=== PATIENT | female | born 2000 | race Caucasian/White ===

== ENCOUNTER → 2020-10-12 09:31 | Outpatient (CLI) | payer OTHER, SELFPAY ==
--- NOTE | ~2020-10-12 | US_ITS ---
EXAMINATION: US transvaginal DATE: 10/12/2020 09:55 INDICATION: Pelvic and perineal pain. TECHNIQUE: Multiple transvaginal sonographic images of the pelvis were obtained. COMPARISON: None. FINDINGS: The uterus measures 5.9 x 2.5 x 3.6 cm. There is no free fluid in the pelvis. The endometrial complex measures 4 mm in thickness. There is an intrauterine device in expected position. The right ovary me asures 3.7 x 2.3 x 3.0 cm. The left ovary measures 4.6 x 2.8 x 2.7 cm. There is normal vascular flow in the ovaries. IMPRESSION: 1. Intrauterine device in expected position. Reviewed, dictated and finalized at location A. AST WORKER
== END ==
PROVIDERS: Visit Provider Obstetrics & Gynecology
DX: R10.2 Pelvic and perineal pain (principal); Z97.5 Presence of (intrauterine) contraceptive device
CPT/HCPCS: 76830

== ENCOUNTER 2023-06-28 09:11 | Outpatient (CLI) | payer OTHER, SELFPAY ==
--- NOTE | 2023-07-05 19:48 | WPDHOMESLEEP ---
Sleep Study - Home Unattended Date of Study: 06/28/23 Ordering Provider: Sosa Wells, MAINTENANCE APPRENTICE Interpreting Provider: Soha Rocha, DO Home Sleep Study Type: Watch PAT Height: 1.73 m Weight: 90.718 kg Body Mass Index: 30.4 Neck Circumference (inches): 13.75 [place]: 15 Reason for Sleep Study Unrefreshing sleep and daytime hypersomnia Sleep History The patient is a 22-year-old female with anxiety, depression, asthma and seasonal allergies that had a sleep study ordered by her primary care for evaluation hypersomnia. The patient denies awakening from sleep short of breath. She frequently awakens at night with heartburn, belching or cough. She constantly snores loudly enough that others complain. She constantly has trouble sleeping when she has a cold. She rarely wakes up gasping for air throughout the night. She occasionally has breathing problems at night observed by herself or others. She constantly sweats excessively at night. She frequently has heart palpitations or irregular heartbeats during the night. She constantly falls asleep during the day but never while driving. He denies cataplexy. She occasionally has trouble at school or work due to sleepiness. She frequently feels unable to move while waking up or falling asleep. She frequently experiences vivid dreamlike scenes upon awakening or falling asleep. He occasionally feels afraid of going to sleep. She rarely has nightmares. She frequently remembers her dreams. She constantly has thoughts racing through her mind. She frequently feels sad or depressed. She constantly has anxiety. She occasionally has muscular tension. She denies noticing parts of her body jerk. She occasionally kicks during the night. She rarely has crawling and aching feelings in her legs and denies having leg pain during the night. She rarely grinds her teeth during sleep it never awakens with morning jaw pain. She denies being bothered by pain during the day and denies being awakened by pain during the night. She frequently wakes up feeling stiff in the morning. She frequently wakes up with sore achy muscles. She frequently wakes up with pain in the neck, spine or other joints. She goes to bed between 10-11 p.m. on both weekdays and weekends. It takes her 1-2 hours to fall asleep. She wakes up twice throughout the night to urinate or to check the time. It takes her 15-30 minutes to fall back asleep. She wakes up at 7:00 a.m. on both weekdays and weekends. She typically gets 5-6 hours of sleep per night. She will stay in bed for 1-2 hours after waking up in the morning. She does not consume any caffeinated beverages within 2 hours of bedtime. She does not engage in physical exercise before bedtime. She will watch television before falling asleep. She will take naps in the afternoon of the evening but they are not refreshing. She consumes 1-2 caffeinated beverages per day. She denies tobacco, alcohol and recreational drug use. [facility] Past Medical History Medical History Anxiety Depression Ovarian cyst Surgical History Surgical History H/O gynecological procedure 04/2020 Kyleena insertion History of orthopedic surgery History of tonsillectomy Family History Family History Mother Endometriosis Father Diabetes mellitus Social History Social History Smoking status: Never smoker Alcohol intake: current Alcohol use details: rarely Substance use: never Substance use type: does not use Lack of Transportation: No Lack of Food: Never True Current Housing: I Have Housing Concerned About Future Housing: No Difficulty Paying Gas/Electric Bills: No Difficulty Paying for Meds: No Currently Unemployed: No Education: [employer]
[2023-07-05 19:58] VITALS: BMI 30.4
== END 2023-06-29 12:47 | disposition home or self-care (01) ==
LOC: ANHCSM 09:14
PROVIDERS: PCP Nurse Practitioner Family; Visit Provider Nurse Practitioner Family
DX: G47.30 Sleep apnea, unspecified (principal); G47.9 Sleep disorder, unspecified
CPT/HCPCS: 95800

== ENCOUNTER 2023-08-18 00:55 | Day surgery (SDC) | payer OTHER, SELFPAY ==
[2023-08-11 13:56] VITALS: BMI 32.0
--- NOTE | 2023-08-17 16:54 | PM.HPGS ---
History of Present Illness History of Present Illness Consent: Risks, benefits, and alternatives have been discussed and questions answered. Patient agrees to proceed with procedure. Chief complaint: Other Dysphagia Narrative: Jill Villegas is a 23 year old female referred for EGD because of dysphagia. For the past 4 years she has had intermittent episodes of food getting caught when she. Is usually solid food. Feels as though it is in her throat although it can be therefore of the 30 minutes. Sometimes she can vomit it back up. It is not something that she can spit out. She denies chronic heartburn. She has not lost weight. Review of Systems Review of Systems: All systems reviewed & are unremarkable except as noted in HPI and below PMFSH Past Medical History Medical History Anxiety Depression Ovarian cyst Surgical History Surgical History H/O gynecological procedure 04/2020 Kyleena insertion History of orthopedic surgery History of tonsillectomy Family History Family History Mother Endometriosis Father Diabetes mellitus Social History Social History Smoking status: Never smoker Alcohol intake: never Alcohol use details: rarely Substance use: never Substance use type: does not use Lack of Transportation: No Lack of Food: Never True Current Housing: I Have Housing Concerned About Future Housing: No Difficulty Paying Gas/Electric Bills: No Difficulty Paying for Meds: No Currently Unemployed: No Education: High School Diploma/GED Difficulty w/ Childcare or Family Care: No Living arrangements: alone Occupation/Education: student Additional occupation/education comments: [employer] Gender identity (if verbalized by the patient): Female Sexual Orientation (if Verbalized by the Patient): Straight or Heterosexual Spiritual care concerns: No Meds Home Medications and Allergies Home Medications Medication Instructions Recorded Confirmed Type levonorgestrel 17.5 mcg/24 hrs 1 device intrauterine ONCE 04/15/23 08/11/23 History (5yrs) 19.5mg intrauterine device (Kyleena) norelgestromin 150 mcg-e.estradiol 1 patch transdermal Q7D #12 ea 04/15/23 08/11/23 Rx 35 mcg/24 hr weekly transderm patch (Xulane) sertraline 100 mg tablet 100 mg PO DAILY 04/15/23 08/11/23 History albuterol sulfate 90 mcg/actuation 2 inh inhalation Q6H PRN Dyspnea 08/11/23 08/11/23 History aerosol inhaler bupropion HCl 300 mg 24 hr tablet, 300 mg PO DAILY 08/11/23 08/18/23 History extended release fluticasone fur. 100 mcg-umeclid 1 inh inhalation DAILY 08/11/23 08/18/23 History 62.5 mcg-vilant 25 mcg inhalat.powder (Trelegy Ellipta) Allergies Allergy/AdvReac Type Severity Reaction Status Date / Time cefdinir [From [employer]] Allergy Severe Hives Verified 08/18/23 12:22 Penicillins Allergy Severe Hives Verified 08/18/23 12:22 Exam Const: General: alert Orientation/consciousness: patient oriented x3 Resp: Auscultation: clear to auscultation bilaterally Cardio: Rhythm: regular rhythm GI: GI Palp: Yes Soft to palpation and No Tenderness to palpation present (GI) Neuro: General: patient oriented x3 Assessment and Plan Assessment and plan (1) Dysphagia: Code(s): R13.10 - Dysphagia, unspecified Status: Acute Assessment and Plan: EGD with possible biopsy or dilatation or cautery.
[2023-08-18 12:28] VITALS: BP 134/76; PULSE 100; RESP 20; TEMP 36; O2SAT 97
[2023-08-18] MEDS: LACTATED RINGERS 1,000 ML 150 ML IV CONT (12:43)
--- NOTE | 2023-08-18 12:47 | WPDANESEPPF ---
Anes - Initial Pre Proc Eval Procedure: Operation Date: 08/18/23 13:45 Proposed Procedures p Esophagogastroduodenoscopy - Kwame Alston MD Date/Time: 08/18/23 12:47 Surgeon: Kwame Alston MD Pre Op Diagnosis: Other Dysphagia Patient Data Age: 23 Gender: F Height: 1.73 m Weight: 91.9 kg Last Vital Signs Temp 96.8 F L 08/18/23 12:28 Pulse 100 08/18/23 12:28 Resp 20 08/18/23 12:28 BP 134/76 08/18/23 12:28 Pulse Ox 97 08/18/23 12:28 O2 Del Method Room Air 08/18/23 12:28 Allergies Allergy/AdvReac Type Severity Reaction Status Date / Time cefdinir [From [employer]] Allergy Severe Hives Verified 08/18/23 12:22 Penicillins Allergy Severe Hives Verified 08/18/23 12:22 Home Medications Medication Instructions Recorded Confirmed Type levonorgestrel 17.5 mcg/24 hrs 1 device intrauterine ONCE 04/15/23 08/11/23 History (5yrs) 19.5mg intrauterine device (Kyleena) norelgestromin 150 mcg-e.estradiol 1 patch transdermal Q7D #12 ea 04/15/23 08/11/23 Rx 35 mcg/24 hr weekly transderm patch (Xulane) sertraline 100 mg tablet 100 mg PO DAILY 04/15/23 08/11/23 History albuterol sulfate 90 mcg/actuation 2 inh inhalation Q6H PRN Dyspnea 08/11/23 08/11/23 History aerosol inhaler bupropion HCl 300 mg 24 hr tablet, 300 mg PO DAILY 08/11/23 08/18/23 History extended release fluticasone fur. 100 mcg-umeclid 1 inh inhalation DAILY 08/11/23 08/18/23 History 62.5 mcg-vilant 25 mcg inhalat.powder (Trelegy Ellipta) Patient hx anesthesia problems: none Family hx anesthesia problems: none Results Review: All pre-operative results and documents have been reviewed as part of the pre-operative evaluation. [facility] Past Medical History Medical History Anxiety Depression Ovarian cyst Surgical History Surgical History H/O gynecological procedure 04/2020 Kyleena insertion History of orthopedic surgery History of tonsillectomy Family History Family History Mother Endometriosis Father Diabetes mellitus Social History Social History Smoking status: Never smoker Alcohol intake: never Alcohol use details: rarely Substance use: never Substance use type: does not use Lack of Transportation: No Lack of Food: Never True Current Housing: I Have Housing Concerned About Future Housing: No Difficulty Paying Gas/Electric Bills: No Difficulty Paying for Meds: No Currently Unemployed: No Education: High School Diploma/GED Difficulty w/ Childcare or Family Care: No Living arrangements: alone Occupation/Education: student Additional occupation/education comments: [employer] Gender identity (if verbalized by the patient): Female Sexual Orientation (if Verbalized by the Patient): Straight or Heterosexual Spiritual care concerns: No Anes - Eval Final PreProcedure Day of Procedure 08/18/23 12:47 Patient weight: obese Heart: regular rate and rhythm Lungs: clear to auscultation Airway: Mallampati scale class II Neurological: alert and oriented Last oral intake: >/= 8 hours ASA classification: II Emergent: no Anesthetic plan: proceed Anesthesia type and monitoring: general GIVS and standard monitoring Results Review: All pre-operative results and documents have been reviewed as part of the pre-operative evaluation. Informed Consent: The patient's anesthetic plan and its attendant risks and benefits were discussed with the patient/family/POA. Questions were solicited and answers provided to the satisfaction of the patient/family/POA.
[2023-08-18 13:40] VITALS: BP 115/69; PULSE 90; RESP 17; O2SAT 99
[2023-08-18 13:50] VITALS: BP 114/75; PULSE 75; RESP 20; O2SAT 99
[2023-08-18 14:00] VITALS: BP 119/78; PULSE 87; RESP 22; O2SAT 100
== END 2023-08-18 14:07 | disposition home or self-care (01) ==
PROVIDERS: PCP Nurse Practitioner Family; Visit Provider Internal Medicine Gastroenterology
PROC: 0DJ08ZZ Inspection of Upper Intestinal Tract, Via Natural or Artificial Opening Endoscopic (ICD-10-PCS; CPT 43235; principal; 2023-08-18 13:45)
DX: K22.2 Esophageal obstruction (principal); K21.00 Gastro-esophageal reflux disease with esophagitis, without bleeding; F41.9 Anxiety disorder, unspecified; F32.A Depression, unspecified; Z79.51 Long term (current) use of inhaled steroids; E66.9 Obesity, unspecified; Z68.30 Body mass index [BMI] 30.0-30.9, adult
CPT/HCPCS: 43249; 43239; 87081; 88305; C1726; J2704; J7120

== ENCOUNTER 2024-12-12 10:01 | Outpatient (CLI) | payer OTHER, SELFPAY ==
--- NOTE | ~2024-12-12 | XR_ITS ---
Right Knee Technique: AP, lateral, and sunrise views were obtained. Clinical History: Pain Findings: No fracture or dislocation is seen. Osseous alignment is anatomic. Joint spaces are preserv ed without degenerative or erosive change. Soft tissues are unremarkable. No joint effusion is seen. Impression: Unremarkable right knee radiographs. Reviewed, dictated and finalized at location . 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
== END 2024-12-12 10:02 | disposition home or self-care (01) ==
PROVIDERS: PCP Nurse Practitioner Family; Visit Provider Nurse Practitioner Family
DX: M25.561 Pain in right knee (principal)
CPT/HCPCS: 73562

== ENCOUNTER 2025-03-29 16:02 | Outpatient (CLI) | payer OTHER, SELFPAY ==
--- NOTE | ~2025-03-29 | CT_ITS ---
EXAMINATION: CT sinus wo con DATE: 03/29/2025 16:17 INDICATION: Allergic rhinitis TECHNIQUE: Computed tomography (CT) of the paranasal sinuses was performed without intravenous contra st. The dose-length product was 287.09 mGy-cm. Automated exposure control and iterative reconstructio n technique were employed. COMPARISON: None FINDINGS: There is scant mucosal thickening maxillary sinuses. Small mucous retention cyst left maxil mirna sinus. Remainder of the paranasal sinuses are unremarkable. No air-fluid levels. No mucoperioste al reaction. Partial opacification of the left ostiomeatal unit. Mastoids are pneumatized. Leftward n maite septal deviation. IMPRESSION: 1. Minimal sinus disease. Reviewed, dictated and finalized at location A. IMPRESSION: 1. Minimal sinus disease.
== END 2025-03-29 16:03 | disposition home or self-care (01) ==
LOC: MICIMG 16:04
PROVIDERS: PCP Nurse Practitioner; Visit Provider Otolaryngology
DX: J30.2 Other seasonal allergic rhinitis (principal); J34.3 Hypertrophy of nasal turbinates; J32.2 Chronic ethmoidal sinusitis
CPT/HCPCS: 70486

== ENCOUNTER 2025-04-16 01:13 | Day surgery (SDC) | payer OTHER, SELFPAY ==
[2025-04-10 14:41] VITALS: BMI 36.5
--- NOTE | 2025-04-10 14:49 | PC.NURSE ---
Report to the Outpatient Waiting Room, entrance under the green pavilion located off [facility], at time _1100_ on date _[id number]_. Planned Procedure Time: _1pm_.? Time changes happen often and if your time is changed the preop area will call you the afternoon before. - You and your visitor will be asked to self-screen and do not enter if you have any COVID symptoms. Please call surgeon if you need to reschedule. - A mask is optional within the hospital at this time. Patients may have clear liquids (water, carbonated beverages, clear teas, apple juice) until 3 hours prior to surgery with a maximum of 20 ounces. - No food from midnight until time of surgery and no smoking, or chewing tobacco (or any form of nicotine). No chewing gum, candy or mints. Take only the following medications with a SIP of water on the morning of surgery: __Fluoxetine and Trelegy. If needed may use albuterol.___ DO NOT STOP ANY OF YOUR OTHER PRESCRIPTION MEDICATIONS PRIOR TO SURGERY EXCEPT THE FOLLOWING Hold all vitamins and supplements for 3 days per anesthesiologist. Medications to discontinue per physician Date to take last mhjc___[id number]____ Please no make-up, nail omani, hairspray, perfume, deodorant, or body powder the day of surgery.? No jewelry (including any body piercings) or valuables the day of surgery, leave them at home.? Please take a shower or bath the night before, or the morning of, surgery with an antibacterial soap.? Wear comfortable, loose fitting clothing. - Jewelry must be removed prior to entering the operating room.? Rings and piercings that are not removed may be cut off. - The hospital will not accept responsibility for valuables.? - Please leave all valuables, including medications, at home the day of surgery. If you are going home after surgery, a licensed owner operator tanker truck driver must drive you home.? - NO public transportation without another adult if you receive anesthesia. - We recommend that an adult stay with you for 24 hours following discharge. - We also recommend that you do not drive, make important decision, drink alcoholic beverages, or take any drugs that were not prescribed by your health care provider for at least 24 hours after your discharge time. Follow any additional instructions given to you from your surgeon. Telephone instructions given to __Jill___and asked if any additional questions and then verbalized understanding. Patient advised to call surgeon office or pre surgery nurse liaison [phone] if any additional questions.
[2025-04-16] VITALS (12 sets, daily range): BP systolic 110–144; BP diastolic 63–92; PULSE 76–101; RESP 10–20; TEMP 36.2–36.3; O2SAT 94–97
--- OUTSIDE RECORDS SUMMARY | 2025-04-16 01:16 | XMS_ITS | Data Portability ---
Author Organization [facility] [employer], Main Office Address [address] [place] [address] Assessment Encounter Date Assessment Date Assessment LastModified by Organization Details LastModified Time 05/27/2023 05/27/2023 VIVIAN Wiggins Call office if worse, ER if life threatening illness RTC 1 month She voice understanding of plan and agrees [email or web address] Not available 05/27/2023 19:40:47 07/30/2023 07/30/2023 VIVIAN Wiggins Call office if worse, ER if life threatening illness RTC 1 month She voice understanding of plan and agrees [email or web address] Not available 07/30/2023 14:06:30 Plan of Treatment Reminders Order Date Submit Date Provider Last Modified By Organization Details Last Modified Time Details Appointments None recorded. Lab vitamin D, 25-hydroxy , total, serum 2024 025 VADIM [facility], [address] [place] [address], [address], 5 10:07:29 lipid panel, serum 2024 025 VADIM [facility], [address] [place] [address], [address], 5 10:07:29 HbA1c (hemoglobi n A1c), blood 2024 025 VADIM [facility], [address] [place] [address], [address], 5 10:07:29 Hepatitis C IgG Ab, qual, serum 2023 024 [email or web address] [facility], [address] [facility] [address], [facility], [place], [address], 4 07:39:18 CT + NG RNA, urine 2023 024 [email or web address] [facility], [address] [facility], [facility], [place], [address], 4 07:39:19 hepatitis C virus Ab, serum 2023 024 [email or web address] [facility], [address] [facility], [facility], [place], [address], 4 07:39:19 vitamin B12 + folate, serum or blood 2023 024 [email or web address] [facility], [address] [facility], [facility], [place], [address], 4 07:39:19 vitamin D, 25-hydroxy , total, serum 2023 024 [email or web address] [facility], [address] [facility], [facility], [place], [address], 4 07:39:19 lipid panel, serum 2023 024 [email or web address] [facility], [address] [facility], [facility], [place], [address], 4 07:39:18 CBC w/ auto diff 2023 024 VADIM [facility], [address] [facility], [facility], [place], [address], 4 08:09:06 TSH + free T4, serum 2023 024 [email or web address] [facility], [address] [facility], [facility], [place], [address], 4 07:39:18 CMP, serum or plasma 2023 024 [email or web address] [facility], [address], [place], [address], 4 07:39:19 vitamin B12 + folate, serum or blood 2022 023 [facility], [address], [place], [address], 3 10:08:30 PAPA (antinucle ar antibodies ) screen, ifa, serum 2022 023 [facility], [address] [facility] [address], [facility], [place], [address], 3 10:08:30 TSH + free T4, serum 2022 023 VADIM [facility], [address] [facility] [address], [facility], [place], [address], 3 10:17:38 HbA1c (hemoglobi n A1c), blood 2022 023 [facility], [address] [facility] [address], [facility], [place], [address], 3 10:08:30 thyroid peroxidase (tpo) Ab, serum 2022 023 [facility], [facility], [facility], [place], [address], 3 10:08:29 lipid panel, serum 2022 023 [facility], [address] [facility] [address], [facility], [place], [address], 3 10:08:30 CMP, serum or plasma 2022 023 [facility], [address] [facility] [address], [address], [place], [address], 3 10:08:29 CBC w/ auto diff 2022 023 [facility], [address] [facility], [facility], [place], [address], 3 10:08:29 vitamin D, 25-hydroxy , total, serum 2022 023 [facility], [address] [facility], [facility], [place], [address], 3 10:08:30 Referral orthopedic surgeon referral - Please call patient to schedule an appointmen t. Thank you. 2024 025 [email or web address] [facility], [address] [facility], [place], [address], 5 09:37:50 cardiologi referral - hx SVT, having episodes at home up to 200bpm on apple watch; approved [id number] 09/15/23-2022 023 Michelle Hernandez MD, [address] [facility] [address], [place], [address], 4 12:10:05 indian trader & immunologi referral - [place] [facility] if possible please, thank you! 2022 023 VADIM Malagon MD, [address] [facility], [place], [address], 3 14:57:28 psychiatri referral - eval for ADHD 2022 023 Pebbles [place] PHD, [address], [place], [address], 4 12:10:34 Procedures upper endoscopy procedure (EGD) (PROC) 2022 023 VADIM Alston MD, [address], [address], [place], [address], 3 16:54:29 Surgeries None recorded. Imaging XR, knee, 3 view 2024 025 [facility], [address], [place], [address], 5 13:04:23 home sleep study - Approved [id number] 05/31/2023- 08/29/2023 CPT 57546 2022 023 [facility] ([facility] [address] [facility], [place], [address], 3 21:01:59 electrocar diogram 2022 023 [email or web address] [facility] [address], [address] [facility], [address], [place], [address], 3 13:22:55 Medication Orders diclofenac sodium 75 mg tablet,del ayed release 2024 025 [facility], [address] [place], [id number], 5 09:52:05 sertraline 50 mg tablet 2023 024 [facility], [address] [place], [id number], 4 09:16:34 bupropion HCl XL 300 mg 24 hr tablet, extended release 2023 024 [email or web address] [facility] #57687, [address] [place], [place], [id number], 5 09:37:09 sertraline 100 mg tablet 2023 024 [facility] #01466, [address] , [place], [place], [id number], 4 16:56:49 bupropion HCl XL 300 mg 24 hr tablet, extended release 2022 023 [email or web address] [facility]01, [address], [place], [place], [id number], 5 09:37:09 bupropion HCl XL 150 mg 24 hr tablet, extended release 2022 023 [email or web address] [facility]15287, [address], [place], [place], [id number], 3 14:17:35 Symbicort 160 mcg-4.5 mcg/actuat ion HFA aerosol inhaler 2022 023 [facility]80, [address], [place], [place], [id number], 3 14:02:52 Patient TargetsNo targets recorded. Patient Instructions Encounter Date Encounter Id Patient Instructions Last Modified By Organization Details Last Modified Time 02/09/2024 [id number] Follow up in 4 months and as needed. Medications sent to pharmacy Continue follow up with cardiology, indian trader, DATA CONTROL ASSISTANT Not available 02/09/2024 09:00:01 06/07/2024 [id number] Follow up in 6 months Prescription sent to pharmacy Obtain labs Not available 06/07/2024 09:16:15 12/12/2024 [id number] Follow up in 3 months Prescription sent to pharmacy Obtain labs Tests: Referral: [facility]. 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 Referring Physician: Sosa Wells, Internal Medicine, Encounter Date: 05/27/2023 Saturator Operator Referral for Ta chycardia hx SVT, having episodes at home up to 200bpm on apple watch; approved [id number] 09/15/23-03/13/24 Referring Physician: Sosa Wells, Internal Medicine, Encounter Date: 05/27/2023 Psychiatrist Referral for Un able to concentrate eval for ADHD Referring Physician: Sosa Wells, Internal Medicine, Encounter Date: 05/27/2023 Orthopedic Surgeon Referral for Pain of right knee joint Please call patient to schedule an appointment. Thank you. Referring Physician: Marissa Payton, Internal Medicine, Encounter Date: 12/12/2024 Results Created Date Observation Date Name Description Value Unit Range Abnormal Flag Note LastModifiedBy Organization Detail LastModifiedTime 05/27/20 elect rocar diogr am No observ ation record ed. [email or web address] [facility] [address], [place], [address], 05/27/2023 13:22:51 07/05/20 23 06/28/2023 home sleep study No observ ation record ed. [email or web address], [place], [address], 07/07/2023 10:20:42 12/12/19 25 12/12/2024 XR, knee, 3 view No observ ation record ed. [email or web address] [facility] [address], [place], [address], 12/12/2024 13:36:43 Result Notes None recorded. Problems Name Problem SNOMED Code Status Onset Date Resolution Date Notes Provider Name and Address Organization Details Recorded Time Tachycardia 2996250 Active 2022 Marissa Payton APRN [address], [address], [place], [address], [employer] 4 08:43:29 Fatigue 61289757 Active 2022 Marissa Payton APRN [address], [address], [place], [address], [employer] 4 08:43:16 Asthma 523849672 Active 2022 Marissa Payton APRN [address], [address], [place], [address], [employer] [place] [facility] [employer] [facility] 4 08:43:11 Mixed anxiety and depressive disorder 113785102 Active 2022 Marissa Payton APRN [address], [address], [place], [address], [employer] [facility] 4 08:43:22 Sleep apnea 34940503 Active 2022 Marissa Payton APRN [address], [address], [place], [address], [employer] [place] [facility] [employer] [facility] 4 08:43:24 Vitamin D deficiency 66808455 Active 2022 Marissa Payton APRN [address], [address], [place], [address], [employer] [place] [facility] [employer] [facility] [employer] 4 08:43:33 Unable to concentrate 40652774 Active 2022 GEORGES [facility] [address], [place], [address], [employer] [facility] [employer] [facility] [employer] 3 13:20:18 Hyperlipide que 15183015 Active 2022 Marissa Payton APRN [address], [address], [place], [address], [employer] [facility] [employer] [facility] [employer] 4 08:43:19 Intermitten t dysphagia 17445362 Active 2022 GEORGES Gramajo [address], [place], [address], [employer] [place] [facility] [employer] [facility] [employer] 3 14:17:49 Polycystic ovary syndrome of bilateral ovaries 528098571 Active 2023 Marissa Payton APRN [address], [address], [place], [address], [employer] [facility] [employer] [facility] 4 08:45:42 Postural orthostatic tachycardia syndrome 504894834 Active 2023 Marissa Payton APRN [address], [place], [address], [employer] 4 08:47:41 Supraventri cular tachycardia 6968144 Active 2023 Marissa Payton APRN [address], [address], [place], [address], [employer] 4 08:54:01 Pain of right knee joint 2005766629202 00 Active 2024 Marissa Payton APRN [address], [place], [address], [employer] 5 09:50:45 Hypertrigly ceridemia 465421255 Active 2024 Marissa Payton APRN [address], [address], [place], [address], [employer] 5 11:11:47 Problem Notes None recorded. 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 Procedure Notes None recorded. Medical Equipment None Reported. Allergies Allergen ID Allergen Name Allergen Category Reaction Reaction Severity Criticality Documentation Date Start Date Code Code System Note Provider Name and Address Organization Details Recorded Time 88758 Product containin g penicilli n (product) medicatio n hives Not available Not available 01/13/2023 70243 8001 SNOMED Not Available [facility] 3 22:23:30 Medications Name Sig Start Date Stop Date Status Note LastModified by Organization Details LastModified Time montelukast 5 mg chewable tablet TAKE 1 TABLET BY MOUTH EVERY DAY IN THE EVENING. active Not Available Not Available No t Available doxycycline hyclate 100 mg capsule TAKE 1 CAPSULE BY MOUTH TWICE DAILY FOR INFECTION 09/26 completed Not Available Not Available Not Available clindamycin HCl 300 mg capsule TAKE 1 CAPSULE BY MOUTH EVERY 8 HOURS FOR 10 DAYS 07/30 completed Not Available Not Available Not Available cetirizine 10 mg tablet TAKE 1 TABLET BY MOUTH TWICE DAILY active Not Available Not Available No t Available atorvastati n 10 mg tablet TAKE 1 TABLET BY MOUTH EVERY DAY DIRECTED FOR HIGH CHOLESTER OL 12/12 completed Not Available Not Available Not Available azithromyci n 250 mg tablet 06/07 completed Not Available Not Available Not Available ibuprofen 800 mg tablet TAKE 1 TABLET BY MOUTH EVERY 8 HOURS WITH FOOD NEEDED 02/08 completed Not Available Not Available Not Available fluconazole 150 mg tablet TAKE 1 TABLET BY MOUTH EVERY DAY NEEDED 05/27 completed Not Available Not Available Not Available benzonatate 200 mg capsule TAKE 1 CAPSULE BY MOUTH THREE TIMES DAILY NEEDED FOR COUGH 06/07 completed Not Available Not Available Not Available metoprolol succinate ER 50 mg tablet,exte nded release 24 hr Take 1 tablet every day by oral route. 12/12 completed Not Available Not Available Not Available minocycline 100 mg capsule 05/27 completed Not Available Not Available Not Available ondansetron HCl 4 mg tablet TAKE 1 TABLET BY MOUTH EVERY 8 HOURS NEEDED 07/30 completed Not Available Not Available Not Available prednisone 20 mg tablet TAKE 2 TABLETS Y MOUTH ONCE DAILY FOR 5 DAYS 06/07 completed Not Available Not Available Not Available metoprolol succinate ER 100 mg tablet,exte nded release 24 hr 06/01 completed Not Available Not Available Not Available sertraline 100 mg tablet Take 1 tablet every day by oral route. 06/09 completed Not Available Not Available Not Available tramadol 50 mg tablet TAKE 1 TABLET BY MOUTH EVERY 8 HOURS NEEDED FOR SEVERE PAIN. 09/26 completed Not Available Not Available Not Available meloxicam 7.5 mg tablet TAKE 1 TABLET BY MOUTH EVERY 12 HOURS NEEDED FOR SEVERE PAIN. 09/26 completed Not Available Not Available Not Available famotidine 20 mg tablet TAKE 1 TABLET BY MOUTH TWICE DAILY active Not Available Not Available No t Available pantoprazol e 40 mg tablet,lou yed release TAKE 1 TABLET BY MOUTH EVERY MORNING 06/07 completed Not Available Not Available Not Available triamcinolo ne acetonide 0.1 % topical ointment APPLY NEEDED AFTER SCIT DIRECTED 06/01 completed Not Available Not Available Not Available misoprostol 200 mcg tablet TAKE 1 TABLET BY MOUTH THE NIGHT PRIOR TO PROCEDURE AND 1 TABLET THE MORNING OF PROCEDURE active Not Available Not Available No t Available metronidazo le 0.75 % topical cream APPLY A SMALL AMOUNT TO AFFECTED AREA(S) TWICE DAILY 02/08 completed Not Available Not Available Not Available sertraline 25 mg tablet 05/27 completed Not Available Not Available Not Available diclofenac sodium 75 mg tablet,lou yed release Take 1 tablet twice a day by oral route as directed. 2024 active Not Available Not Available Not Avai lable montelukast 10 mg tablet TAKE 1 TABLET BY MOUTH DAILY active Not Available Not Available No t Available mupirocin 2 % topical ointment APPLY TOPICALLY TO AFFECTED AREA OF NOSE 3 TIMES PER DAY FOR 5 DAYS. 02/07 completed Not Available Not Available Not Available metoprolol succinate ER 25 mg tablet,exte nded release 24 hr TAKE 1 TABLET BY MOUTH DAILY 06/09 completed Not Available Not Available Not Available azelastine 137 mcg (0.1 %) nasal spray USE 2 SPRAYS IN EACH NOSTRIL TWICE DAILY active Not Available Not Available No t Available epinephrine 0.3 mg/0.3 mL injection, auto-inject or INJECT 1 PEN IN THE MUSCLE ONCE active Not Available Not Available No t Available albuterol sulfate HFA 90 mcg/actuati on aerosol inhaler INHALE 2 PUFFS BY MOUTH EVERY 6 HOURS active Not Available Not Available No t Available ipratropium bromide 42 mcg (0.06 %) nasal spray USE 2 SPRAYS IN EACH NOSTRIL TWICE DAILY 12/12 completed Not Available Not Available Not Available sertraline 50 mg tablet TAKE 1 TABLET BY MOUTH EVERY DAY DIRECTED FOR DEPRESSIO N OR ANXIETY active Not Available Not Available No t Available drospirenon e 3 mg-ethinyl estradiol 0.03 mg tablet TAKE 1 TABLET BY MOUTH EVERY DAY 05/27 completed Not Available Not Available Not Available naproxen 500 mg tablet TAKE 1 TABLET BY MOUTH TWICE DAILY NEEDED FOR PAIN 07/30 completed Not Available Not Available Not Available bupropion HCl XL 300 mg 24 hr tablet, extended release TAKE 1 TABLET BY MOUTH EVERY DAY IN THE MORNING 12/12 completed Not Available Not Available Not Available bupropion HCl XL 150 mg 24 hr tablet, extended release TAKE 1 TABLET BY MOUTH EVERY DAY IN THE MORNING 07/30 completed Not Available Not Available Not Available nitrofurant oin monohydrate /macrocryst als 100 mg capsule TAKE 100 MILLIGRAM S BY ORAL ROUTE EVERY 12 HOURS FOR 7 DAYS active Not Available Not Available No t Available fenofibrate 160 mg tablet Take 1 tablet every day by oral route as directed. 2024 active Not Available Not Available Not Avai lable Zyrtec 02/07 completed Not Available Not Available Not Available Symbicort 160 mcg-4.5 mcg/actuati on HFA aerosol inhaler INHALE 2 PUFFS BY MOUTH TWICE DAILY 07/30 completed Not Available Not Available Not Available ProChamber DIRECTED active Not Available Not Available No t Available Loryna (28) 3 mg-0.02 mg tablet Take 1 tablet every day by oral route. 05/27 completed Not Available Not Available Not Available Xulane 150 mcg-35 mcg/24 hr transdermal patch APPLY 1 PATCH EVERY 7 DAYS IN A CONTINUOU S MANNER active Not Available Not Available No t Available Kyleena 17.5 mcg/24 hr (up to 5 years) 19.5 mg intrauterin e device Take by intrauter ine route. 12/12 completed Not Available Not Available Not Available Trelegy Ellipta 100 mcg-62.5 mcg-25 mcg powder for inhalation INHALE 1 PUFF BY MOUTH EVERY DAY 02/08 completed Not Available Not Available Not Available Trelegy Ellipta 02/07 completed Not Available Not Available Not Available Tri-Lo-Yamileth 0.18 mg/0.215 mg/0.25 mg-0.025 mg tablet TAKE ONE TABLET BY MOUTH EVERY DAY active Not Available Not Available No t Available Trelegy Ellipta 200 mcg-62.5 mcg-25 mcg powder for inhalation INHALE 1 PUFF BY MOUTH DAILY active Not Available Not Available No t Available Vitals Date Recorded Body height Body mass index (BMI) Body weight Body temperature Heart rate Oxygen saturation Oxygen saturation in Arterial blood by Pulse oximetry Systolic blood pressure Diastolic blood pressure Provider Name and Address Organization Details Last Updated DateTime 5 172.72 cm 37.9 kg/m2 376754. 5 g 98 [degF] 101 /min 94 % 94 % 124 mm[Hg] 78 mm[Hg] Johana Cha MA [facility] [employer] [facility] 5 09:35:53 Date Recorded Body height Body mass index (BMI) Body weight Oxygen saturation Oxygen saturation in Arterial blood by Pulse oximetry Heart rate Body temperature Systolic blood pressure Diastolic blood pressure Provider Name and Address Organization Details Last Updated DateTime 4 172.72 cm 31.9 kg/m2 57750.4 g 96 % 96 % 94 /min 96 [degF] 124 mm[Hg] 80 mm[Hg] Paxton Hooker CMA [facility] [employer] [facility] 4 08:39:42 Date Recorded Body weight Body mass index (BMI) Body height Body temperature Heart rate Oxygen saturation Oxygen saturation in Arterial blood by Pulse oximetry Systolic blood pressure Diastolic blood pressure Provider Name and Address Organization Details Last Updated DateTime 3 36132.9 9 g 32.1 kg/m2 172.72 cm 97.6 [degF] 104 /min 97 % 97 % 128 mm[Hg] 82 mm[Hg] Cynthia Haque MA [facility] [employer] [facility] 3 12:43:36 Date Recorded Body height Body mass index (BMI) Body weight Body temperature Heart rate Respiratory rate Oxygen saturation Oxygen saturation in Arterial blood by Pulse oximetry Systolic blood pressure Diastolic blood pressure Provider Name and Address Organization Details Last Updated DateTime 4 172.72 cm 34.1 kg/m2 603414. 69 g 97.6 [degF] 95 /min 18 /min 95 % 95 % 114 mm[Hg] 58 mm[Hg] Jasen Jara LPN [facility] [employer] [facility] 4 08:59:21 Date Recorded Body height Body mass index (BMI) Body weight Body temperature Heart rate Oxygen saturation Oxygen saturation in Arterial blood by Pulse oximetry Systolic blood pressure Diastolic blood pressure Provider Name and Address Organization Details Last Updated DateTime 3 172.72 cm 31.9 kg/m2 62859.4 g 97.8 [degF] 104 /min 97 % 97 % 124 mm[Hg] 76 mm[Hg] Cynthia Haque [place] [facility] [employer] [facility] 3 14:04:53 Social History Question Answer Notes LastModified by Organizat ion Details LastModified Time Tobacco Smoking Status Never Smoker Not Available [facility] 01/13/2023 22:22:09 Do You Have An Advance Directive? No Information n ot available 06/07/2024 What Is Your Level Of Caffeine Consumption? Moderate [id number] Information not available 01/13/2023 How Much Tobacco Do You Chew? None Information not available 06/07/2024 In The 14 Days Before Symptom Onset, Have You Had Close Contact With A Laboratory-confirm ed COVID-19 While That Case Was Ill? No Information n ot available 05/27/2023 In The 14 Days Before Symptom Onset, Have You Had Close Contact With A Person Who Is Under Investigation For COVID-19 While That Person Was Ill? No Information not available 05/27/2023 What Type Of Diet Are You Following? REGULAR Information n ot available 05/27/2023 Which Illicit Or Recreational Drugs Have You Used? No [id number] Information not available 01/13/2023 What Is The Highest Grade Or Level Of School You Have Completed Or The Highest Degree You Have Received? [id number] Information not available 05/27/2023 Have There Been Any Changes To Your Family Or Social Situation? No Information no t available 05/27/2023 What Is The Fluoride Status Of Your Home? Unknown Information not available 05/27/2023 Are There Any Guns Present In Your Home? No Information not available 05/27/2023 Do You Use Insect Repellent Routinely? Yes Information not available 05/27/2023 Where Do You Live? Apartment Inform ation not available 05/27/2023 What Was The Date Of Your Most Recent Tobacco Screening? 12/12/2024 Information not available 12/12/2024 How Many Children Do You Have? 0 Information not available 12/12/2024 Do You Have Any Pets? Yes Information not available 05/27/2023 What Is Your Relationship Status? Single Information not available 05/27/2023 Do You Use Your Seat Belt Or Car Seat Routinely? Yes Information not available 12/12/2024 Do You Have Smoke And Carbon Monoxide Detectors In Your Home? Yes Information not available 05/27/2023 Are There Any Smokers In Your House? No Information not available 05/27/2023 How Much Tobacco Do You Smoke? No [id number] Information not available 01/13/2023 Do You Use Sunscreen Routinely? Yes [id number] Information not available 01/13/2023 Have You Recently Traveled Abroad? No Information not available 05/27/2023 Do You Have Any Dietary Restrictions? No Information not available 05/27/2023 Sex: Unknown Functional Status Question Answer Note LastModified by Organizat ion Details LastModified Time Do you use any illicit or recreational drugs? No Information not available 05/27/2023 Do you or have you ever used any other forms of tobacco or nicotine? No Information not available 05/27/2023 What is your level of alcohol consumption? Occasional Information not available 06/07/2024 Do you or have you ever used smokeless tobacco? Never used smokeless tobacco [id number] Information not available 01/13/2023 Are you currently employed? 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 Never used electronic cigarettes [id number] Information not available 01/13/2023 What is your exercise level? Moderate Information not available 05/27/2023 Mental Status Question Answer Note LastModified by Organization D etails LastModified Time Do you feel stressed (tense, restless, nervous, or anxious, or unable to sleep at night)? [id number] Information not available 12/12/2024 Family History Relationship Description Onset Age of this Age Resolved Age Notes LastModified by Organization Details LastModified Time Father Diabetes mellitus [id number] Not available 01/13/2023 22:22:14 Mother Endometritis [id number] Not av ailable 12/12/2024 09:28:03 Mother Anxiety disorder [email or web address] Not available 2023 09:00:34 Mother Depressive disorder Not available 2023 09:00:34 Father Migraine Not available 06/07/2024 09:00:34 Paternal Grandmother Heart disease [id number] Not available 2023 09:00:35 Paternal Grandfather Heart disease [email or web address] Not available 2023 09:00:35 Medical History Condition Response HEART DISEASE/HEART PROBLEMS Y ANXIETY DISORDER Y FEMALE PROBLEMS / INFECTIONS Y DEPRESSION (INCLUDING POST ) Y ASTHMA Y Gynecological History Statement/Question Response How many live births 0 Abnormal Pap N Date of LMP 01/22/2021 Sexually Active? Y STIs/STDs N HPV Vaccine N Date of Last Pap Smear 04/20/2024 Age at Menarche 13 Current Control Method Patch Breast Problems no N Obstetrics History GPAL:G 0 P 0 0 0 0 Type Value Multiple Births 0 Full Term 0 Induced 0 Spontaneous 0 Premature 0 Living 0 Ectopics 0 Total 0 Immunizations Vaccine Type Date Status Note Provider Nam e and Address Organization Details Recorded Time Hib-Hep B 1 completed Marissa Payton APRN [address], [place] [address], [place], [address], [employer] [facility] [employer] 02/08/2024 16:18:33 Hib-Hep B 0 sabrina Payton APRN [address], [place] [address], [place], [address], [employer] [facility] [employer] 02/08/2024 16:18:33 Hib-Hep B 1 sabrina Payton APRN [address], [place] [address], [place], [address], [place] [facility] 02/08/2024 16:18:33 IPV 1 completed Marissa Payton APRN [address], [address], [place], [address], [place] [facility] 02/08/2024 16:18:33 IPV 1 completed Marissa Payton APRN [address], [address], [place], [address], [place] [facility] 02/08/2024 16:18:33 IPV 6 completed Marissa Payton APRN [address], [address], [place], [address], [place] [facility] 02/08/2024 16:18:33 IPV 0 completed Marissa Payton APRN [address], [address], [place], [address], [place] [facility] 02/08/2024 16:18:33 MMR 1 completed Marissa Payton APRN [address], [address], [place], [address], [place] [facility] [employer] [facility] 02/08/2024 16:18:33 MMRV 6 completed Marissa Payton APRN [address], [address], [place], [address], [place] [facility] [employer] [facility] 02/08/2024 16:18:33 Tdap 2 completed Marissa Payton APRN [address], [address], [place], [address], [place] [facility] 02/08/2024 16:18:33 varicella 5 completed Marissa Payton APRN [address], [address], [place], [address], [place] [facility] 02/08/2024 16:18:33 HPV, quadrivalent 9 completed Marissa Payton APRN [address], [address], [place], [address], [facility] 02/08/2024 16:18:33 meningococcal MCV4P 7 completed Marissa Payton APRN [address], [address], [place], [address], [facility] 02/08/2024 16:18:33 DTaP 1 completed Marissa Payton APRN [address], [address], [place], [address], [facility] 02/08/2024 16:18:33 DTaP 1 completed Marissa Payton APRN [address], [address], [place], [address], [facility] 02/08/2024 16:18:33 DTaP [address], [place], [address], [facility] 02/08/2024 16:18:33 DTaP 0 completed Marissa Payton APRN [address], [address], [place], [address], [email or web address] [facility] 02/08/2024 16:18:33 DTaP 1 sabrina Payton APRN [address], [address], [place], [address], [facility] 02/08/2024 16:18:33 pneumococcal polysaccharide PPV23 4 sabrina Payton APRN [address], [address], [place], [address], [facility] 06/07/2024 09:06:07 Tdap [address], [place], [address], [facility] 06/07/2024 09:06:07 Past Encounters Encounter ID Performer Location Encounter Start Date Encounter Closed Date Diagnosis/Indication Diagnosis SNOMED-CT Code Diagnosis ICD10 Code Diagnosis Note [id number] [facility]_M IGR[facility]_ DEFAULT_1 _1 , 01/23/2021 00:00:00 01/23/2021 10:13:15 [id number] [facility] _[facility]_M IGR[facility]_ DEFAULT_1 _1 , 02/04/2021 00:00:00 02/04/2021 13:47:11 [id number] Angie maguire MD [facility] [address] [place] [address] 05/27/2023 12:31:32 05/27/2023 13:21:50 Tachycardia 5577390 R00.0 EKG in office today- NSR, rate 81, normal [place], P axis, rate, rhythmget appt with cardiology ER precaution s Fatigue 78321770 R53.83 check labs, sleep study Asthma 916295823 J45.90 9 continue albuterol prnstart Symbicort- she is aware to rinse and spit after use Mixed anxi ety and depressive disorder 363219675 F41.8 on sertraline , add wellbutrin - she is aware of side effects, risks, benefitsca ll office if any change in mood or behaviorps [facility] Sleep apnea 19322680 G47 .30 get home sleep study Family his tory of Thyroid disorder 701204736 Z83.49 check labs Adult heal th examination 522387755 Z00.00 Diabetes m ellitus screening 920650099 Z13.1 Cholesterol screening 27 8107143 Z13.220 Vitamin D deficiency 347 62318 E55.9 check labs Unable to concentrate 60 411775 R41.840 get appt with psychiatry for now will augment her antidepres jose with wellbutrin as above to see if we can help with the focus issues while she is awaiting psych assessment [id number] Angie maguire MD [facility] [address] [place] [address] 07/30/2023 13:56:03 07/30/2023 14:21:46 Tachycardia 3756792 R00.0 following cardiology at [facility] rrently wearing holter monitorhas upcoming echoER precaution s Asthma 137846714 J45.90 9 continue albuterol prnnow following indian trader- Dr. Cuevas- they have started her on Trelegy Mixed anxi ety and depressive disorder 698817526 F41.8 on sertraline , increase wellbutrin - she is aware of side effects, risks, benefitsca ll office if any change in mood or behaviorps [facility] referral [facility] Unable to concentrate 60 053499 R41.840 get appt with psychiatry for now will augment her antidepres jose with wellbutrin as above to see if we can help with the focus issues while she is awaiting psych assessment We have tried refer her to [address], but none will take her insuranceI have instructed her to call her insurance and get a few names of people that are not work and call us back so we can place a referral for her Sleep apnea 13258994 G47 .30 no apnea on home sleep study Vitamin D deficiency 347 24904 E55.9 on OTC supplement Hyperlipidemia 70426728 E78.5 no medsworkin g on lifestyle measures Intermitte nt dysphagia 26628875 R13.19 get EGD [id number] Angie maguire MD [facility] Internal Med [place] [address] [place] [address] [address] [place] [address] 02/09/2024 08:31:05 02/09/2024 09:02:15 Mixed anxiety and depressive disorder 372180448 F41.8 [id number] Angie maguire MD [facility] Internal Med [place] [address] [place] [address] 06/07/2024 08:38:40 06/07/2024 08:51:24 Hyperlipidemia 56389170 E78.5 Vitamin D deficiency 347 88601 E55.9 Screening for disorder 438225292 Z13.9 Mixed anxi ety and depressive disorder 852473025 F41.8 [id number] Angie maguire MD [facility] Internal Med [facility] [address] , [facility] [address] [place] [address] 12/12/2024 09:24:25 12/12/2024 10:02:53 Hyperlipidemia 45021914 E78.5 Vitamin D deficiency 347 62510 E55.9 Pain of ri ght knee joint 9662988068 01469 M25.561 Health Concerns Section Related Observation LastModified by Organization Detai ls LastModified Time None Recorded Concern Status LastModified by Organization Details LastModified Time None Recorded Advance Directives Directive N: Payers Encounter Date Sequence Insurance Name Policy Number Policy Mota Covered Member ID Mota Member ID Guarantor Name 05/27/2023 1 [employer] ([facility] [id number] Breleigh N Scheland [id number] Breleigh N Scheland 07/30/2023 1 [employer] ([facility] [id number] Deep M Scheland [id number] Breleigh N Scheland 02/09/2024 1 [employer] ([facility] [id number] Deep M Scheland [id number] Breleigh N Scheland 06/07/2024 1 [employer] ([facility] [id number] Deep M Scheland [id number] Breleigh N Scheland 12/12/2024 1 [employer] ([facility] [id number] Deep M Scheland [id number] Breleigh N Scheland Notes Date Note Type Note Provider Name and Address Organization Details Recorded Time 3 text/html Jingtavoclemencia presents today to establish care. [place]. [place] IN[place] [facility]. 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 First, she reports her asthma and allergies have been really out of control this year. She is having to use her albuterol inhaler at least once a day. She is not currently on a maintenance inhaler. She reports that she used to get allergy shots but stop those a few years back. She is requesting to see an indian trader to see about restarting those shots. She reports a long history of fatigue. Her previous provider had checked her for B12 and vitamin-D, she thinks she was low but can not remember the numbers. She did have a sleep study when she was about 16 years old. She reports they stopped it early because she was pulling her leads off. She apparently has not had another 1 since. She does report that she snores loudly. She wakes up tired and feels unrested. She reports her dad does have a CPAP. She reports she has been having issues with tachycardia. She reports she has had episodes of SVT in the past. This has been going on for multiple years. She reports it is worse when she gets up from a sitting or lying position. She has had some presyncopal episodes but has never had syncope. With a presyncopal episodes, she reports that her heart rate on her watch can go up to approximately 200 beats per minute. She has brought a printout with 12 different episodes she captured on her apple watch (no dates listed on printout) where her heartrate goes from 60s-70s to the low 200s. She denies any chest pain. She is requesting a cardiology referral, she reports she is concerned she may have POTS. She reports she had a holter monitor done earlier in the year by previous PCP, but apparently it was a very old monitor and wasn't functioning during much of the time she was wearing it, and they did not repeat the test. She is on sertraline for her anxiety and depression. She feels like she needs a little something more to help with her symptoms. She reports she does not want to go up higher on the sertraline. She is wanting to add a different medication. She denies any SI or HI today. She reports she is having difficulty focusing in school. She reports her teachers have told her she needs to be tested for ADHD. She would like to get a psychiatry referral to get tested for this. Sosa Wells, COMMERCIAL COLLECTIONS SPECIALIST-C [address] [facility], [facility] [address], [place], [address], [facility] [employer] 05/27/2023 19:43:20 3 text/html Jill presents today for follow up. she reports she did see the indian trader. They have changed her inhaler to Trelegy. She is also starting allergy shots. She had reported to them that she does have some intermittent dysphagia with pastas, breads, and meats. She has never had EGD. They are recommending she be referred to have 1. She did see Cardiology. She is currently wearing a heart monitor. She tells me she does have an echo scheduled for next month as well. She reports she has had 1 episode of tachycardia and it was while she was wearing the monitor. She did have her sleep study done, she has no sleep apnea. Last visit, we started her on the bupropion in addition to her sertraline. She reports that her anxiety and depression is somewhat improved, however she still having panic attacks. She has noticed an improvement in focus during school on the Wellbutrin as well. She is requesting to increase the dose. She denies any SI or HI today. Last visit we had also referred her for to Psychiatry for ADHD testing. We have tried 3 different psychiatrist but none will take her insurance. GEORGES Gramajo [address], [address], [place], [address], [employer] 07/30/2023 14:44:18 4 text/html Cuoc presents today to establish care with this provider. She currently works in the [employer]. She sees a Saturator Operator for her tachycardia and was diagnosed with postural orthostatic tachycardia syndrome (POTS). She is currently seeing DATA CONTROL ASSISTANT for her polycystic ovary syndrome (PCOS). She also states that she seen a pressure steamer tender for dysphagia, she went through a procedure to stretch her esophagus which she states helps with her swallowing. She states that she was in the ED in November for a migraine. She notes that her brother and father both suffer from migraines. Marissa Payton APRN [address], [address], [place], [address], [employer] 02/09/2024 09:00:10 4 text/html Jill is being seen today for 3 month follow up. Patient states that she is having a cardiac procedure on Wednesday to help with her SVT. No medication changes. Yadirajed presents today to establish care with this provider. She currently works in the [employer]. She sees a Saturator Operator for her tachycardia and was diagnosed with postural orthostatic tachycardia syndrome (POTS). She is currently seeing DATA CONTROL ASSISTANT for her polycystic ovary syndrome (PCOS). She also states that she seen a pressure steamer tender for dysphagia, she went through a procedure to stretch her esophagus which she states helps with her swallowing. She states that she was in the ED in November for a migraine. She notes that her brother and father both suffer from migraines. Marissa Payton APRN [address], [address], [place], [address], [employer] 06/07/2024 09:16:32 5 text/html Jill presents today for 6 month follow up. She states that she fell on the ice about 10 days ago and landed on the knee that she previously had surgery on. She states that it has not been getting better. She has been using ice and tylenol with no relief. 06/07/2024kathleen is being seen today for 3 month follow up. Patient states that she is having a cardiac procedure on Wednesday to help with her SVT. No medication changes. 02/09/2024nikolemary presents today to establish care with this provider. She currently works in the [employer]. She sees a Saturator Operator for her tachycardia and was diagnosed with postural orthostatic tachycardia syndrome (POTS). She is currently seeing DATA CONTROL ASSISTANT for her polycystic ovary syndrome (PCOS). She also states that she seen a pressure steamer tender for dysphagia, she went through a procedure to stretch her esophagus which she states helps with her swallowing. She states that she was in the ED in November for a migraine. She notes that her brother and father both suffer from migraines. Marissa Payton APRN [address], [address], [place], [address], [employer] 12/12/2024 09:58:32 OBGyn Episode No OBEpisode recorded."
--- OUTSIDE RECORDS SUMMARY | 2025-04-16 01:16 | XMS_ITS | Referral Summary ---
Author Organization [facility] Address [address] [place] [address] Care Team Providers Care Senior Mortgage Underwriter Name Role Phone Marissa Payton NP Primary Care Provider [phone] Encounters Date Type Department Care Team Description 03/29/2025 Telephone [facility] Cardiology [address] [place] [address] Caroline Henry MD from Last 3 Months Allergies Active Allergy Reactions Criticality Noted Date Comments Cefdinir Hives Medium 01/29/2021 Penicillins Hives Medium 01/29/2021 Medications albuterol HFA (PROVENTIL HFA,VENTOLIN HFA,PROAIR HFA) 90 mcg/actuation inhaler Inhale 2 puffs every 6 (six) hours as needed 3 Active buPROPion XL (WELLBUTRIN XL) 150 mg 24 hr tablet Take 1 tablet (150 mg total) by mouth every morning 3 Active levonorgestreL (Kyleena) IUD 1 each by intrauterine route once Active sertraline (ZOLOFT) 100 mg tablet Take 1 tablet (100 mg total) by mouth nightly 3 Active cetirizine (ZyrTEC) 10 mg tablet Take 1 tablet (10 mg total) by mouth nightly 3 Active montelukast (SINGULAIR) 10 mg tablet Take 1 tablet (10 mg total) by mouth as needed Active Trelegy Ellipta 200-62.5-25 mcg inhaler Inhale 1 puff every morning 4 Active azelastine (ASTELIN) 137 mcg (0.1 %) nasal spray Administer 2 sprays into each nostril 2 (two) times a day Active EPINEPHrine 0.3 mg/0.3 mL auto-injection syringe INJECT 1 PEN IN THE MUSCLE ONCE Active Xulane 150-35 mcg/24 hr APPLY 1 PATCH ONCE WEEKLY IN A CONTINUOUS MANNER DIRECTED Active aspirin 81 mg enteric coated tablet Take 1 tablet (81 mg total) by mouth daily 30 tablet Active metoprolol XL (TOPROL-XL) 50 mg extended release tablet Take 1 tablet (50 mg total) by mouth nightly 90 tablet 3 4 06/12/20 Active Additional Information Patient not taking.Reported on 01/04/2025 SEMAGLUTIDE SUBQ Inject under the skin Active Active Problems Problem Noted Date Diagnosed Date Tachycardia 06/12/2024 Tachycardia, unspecified 05/11/2024 Polycystic ovary syndrome 02/09/2024 POTS (postural orthostatic tachycardia syndrome) 10/15/2023 Intermittent dysphagia 07/30/2023 Hyperlipidemia 07/30/2023 SVT (supraventricular tachycardia) 07/23/2023 Mixed anxiety and depressive disorder 05/27/2023 Fatigue 05/27/2023 Asthma 05/27/2023 Sleep apnea 05/27/2023 Unable to concentrate 05/27/2023 Vitamin D deficiency 05/27/2023 Social History Tobacco Use Types Packs/Day Years Used Date Smoking Tobacco: Never Smokeless Tobacco: Never Tobacco Cessation:Counseling Given: Not Answered AUDIT-C Answer Date Recorded Q1: How often do you have a drink containing alcohol? Never 06/12/2024 Q2: How many drinks containi ng alcohol do you have on a typical day when you are drinking? Patient does not drink Q3: How often do you have si x or more drinks on one occasion? Never 06/12/2024 Personal Safety Answer Date Recorded Have you ever been in or are you currently in a harmful physical or emotional relationship or is someone making you feel afraid or unsafe? Denies 06/12/2024 Comments No Sex and Gender Information Value Date Recorded Sex Assigned at Not on file Legal Sex Female 8:57 PM CDT Gender Identity Female 02/11/2024 8:20 AM CDT Sexual Orientation Not on file Last Filed Vital Signs Vital Sign Reading Time Taken Comments Blood Pressure 120/82 01/04/2025 2:35 PM RECYCLER Pulse 102 01/04/2025 2:35 PM RECYCLER Temperature 36.1 C (97 F) 06/12/2024 10:05 AM CDT Respiratory Rate 16 07/11/2024 10:1 4 AM CDT Oxygen Saturation 96% 01/04/2025 2:35 PM RECYCLER Inhaled Oxygen Concentration - - Weight 110.9 kg (244 lb 9.6 oz) 01/04/2025 2:35 PM RECYCLER Height 172.7 cm (5' 8) 01/04/2025 2:35 PM RECYCLER Body Mass Index 37.19 01/04/2025 2:35 PM RECYCLER Plan of Treatment Not on file Medical Devices Implanted Type Area Gathering Worker Device Identifier Shelf Expiration Date Model / Serial / Lot [facility] Vascade Mvp 6-12fr Venous Closure [id number] - [id number] Implanted:Qty: 1 on 06/12/2024 by Harsha Garrison MD at [facility] 02/01/2026 [id number] / / [id number] [facility] Device Vascular Closure Femoral Artery Bioabsorbable Dual Method Vascade 6-7fr Collagen [id number] - [id number] Implanted:Qty: 1 on 06/12/2024 by Harsha Garrison MD at [facility] 02/15/2026 [id number] / / [id number] [facility] Device Closure Vascade Od5 Fr Femoral Artery [id number] - [id number] Implanted:Qty: 1 on 06/12/2024 by Harsha Garrison MD at [facility] 02/02/2026 [id number] / / [id number] Insurance [employer] Care Teams Senior Mortgage Underwriter Relationship Specialty Start Date End Date Marissa Payton NP [address] [address] PCP - General Family Medicine 02/14/25
--- OUTSIDE RECORDS SUMMARY | 2025-04-16 01:16 | XMS_ITS | Clinical Summary ---
Author Organization [facility] Address [address] [place] [address] Care Team Providers Care Label Stitcher Name Role Phone Marissa Payton NP Primary Care Provider + [phone] Allergies Active Allergy Reactions Criticality Noted Date [...] mg total) by mouth daily 30 tablet 4 Active metoprolol XL (TOPROL-XL) 50 mg extended [...] to concentrate 05/27/2023 Vitamin D deficiency 05/27/2023 Encounters Date Type Department Care Team Description 03/29/[address] [facility] Cardiology [address] [place] [address] Caroline Henry MD from Last 3 Months Surgical History Surgery Date Site/Laterality Comments KNEE SURGERY 11/15/2015 - 11/14/2016 Right meniscus TONSILLECTOMY/ADENOIDECTOMY 11/15/2003 - 11/14/2004 WISDOM TOOTH EXTRACTION 11/15/2021 - 11/14/2022 EXPOSURE OF IMPACTED TOOTH 2014 ESOPHAGEAL DILATION 08/15/2023 - 09/14/2023 Medical History Medical History Date Comments Asthma Seasonal allergies Anxiety Ovarian cyst bilateral cysts PONV (postoperative nausea and vomiting) Tachycardia POTS (postural orthostatic tachycardia syndrome) GERD (gastroesophageal reflux disease) Kidney stone Depression Motion sickness Arrhythmia Family History Medical History Relation Name Comments Diabetes Father Hyperlipidemia Father Hypertension Father Migraines Father Endometriosis Mother Relation Name Status Comments Father Alive Mother Alive Social History Tobacco Use Types Packs/Day Years [...] AM CDT Sexual Orientation Not on file Obstetrics History Last Filed Vital Signs Vital Sign Reading Time Taken Comments Blood Pressure 120/82 01/04/2025 2:35 PM RESEARCH TECHNOLOGIST Pulse 102 01/04/2025 2:35 PM RESEARCH TECHNOLOGIST Temperature 36.1 C (97 F) 06/12/2024 10:05 AM CDT Respiratory Rate 16 07/11/2024 10:1 4 AM CDT Oxygen Saturation 96% 01/04/2025 2:35 PM RESEARCH TECHNOLOGIST Inhaled Oxygen Concentration - - Weight 110.9 kg (244 lb 9.6 oz) 01/04/2025 2:35 PM RESEARCH TECHNOLOGIST Height 172.7 cm (5' 8) 01/04/2025 2:35 PM RESEARCH TECHNOLOGIST Body Mass Index 37.19 01/04/2025 2:35 PM RESEARCH TECHNOLOGIST Plan of Treatment Health Maintenance Due Date Last Done Comments Cervical Cancer Screening 2000 Depression Screening 2000 Hepatitis C Screening 2000 HPV Vaccines (2 - 2-dose series) 02/20/2010 08/22/20 09 Regular Well Visit/Exam 18-64 2018 Pneumococcal vaccine <65 (2 of 2 - PCV) 03/16/2025 03/16/2024 Influenza Vaccine (Season Ended) 2025 DTaP/Tdap/Td Vaccine (8 - Td or Tdap) 03/16/2034 03/16/2024, 05/10/2012, 08/09/2006, Additional history exists Hepatitis B Screening Completed 10/19/2001 , 2000, 2000 Varicella Vaccines Completed 04/12/2015, 08/09/2006 Medical Devices Implanted Type Area Welfare Supervisor Device Identifier Shelf Expiration Date Model / Serial / Lot [facility] [employer] Vascade Mvp 6-12fr Venous Closure [id number] - [id number] Implanted:Qty: 1 on 06/12/2024 by Harsha Garrison MD at [facility] 02/01/2026 [id number] / / [id number] [facility] [employer] [facility] Device Vascular Closure Femoral Artery Bioabsorbable Dual Method Vascade 6-7fr Collagen [id number] - [id number] Implanted:Qty: 1 on 06/12/2024 by Harsha Garrison MD at [facility] 02/15/2026 [id number] / / [id number] [facility] [employer] [facility] Device Closure Vascade Od5 Fr Femoral Artery [id number] - [id number] Implanted:Qty: 1 on 06/12/2024 by Harsha Garrison MD at [facility] 02/02/2026 [id number] / / [id number] Insurance [facility] [employer] Care Teams Label Stitcher Relationship Specialty Start Date End Date Marissa Payton NP [address] [address] PCP - General Family Medicine 02/14/25
--- OUTSIDE RECORDS SUMMARY | 2025-04-16 01:16 | XMS_ITS | Clinical Summary ---
Author Organization [facility] Address [address] [address] Phone Care Team Providers Care Store Sales Consultant Name Role Phone Becky Carroll MD Primary Care Provider Kristina Rivera MD Unavailable [phone] Allergies Active Allergy Reactions Criticality Noted Date Comments Amoxicillin-Pot Clavulanate 05/14/20 04 Social History Tobacco Use Types Packs/Day Years Used Date Smoking Tobacco: Never Assessed Comments Unknown Sex and Gender Information Value Date Recorded Sex Assigned at Not on file Legal Sex Female 3:10 AM BALLISTIC TECHNICIAN Gender Identity Not on file Sexual Orientation Not on file Plan of Treatment Health Maintenance Due Date Last Done Comments Hepatitis C Virus (HCV) Screening 2000 Human Papillomavirus (HPV) Immunization (2 - 2-dose series) 02/20/2010 08/22/2009 Pap Smear 2021 Influenza Immunization (#1) 2024 SARS-COV-2 Immunization ( season) 2024 Respiratory Syncytial Virus (RSV) Immunization (Adult) (1 - 1-dose 75+ series) 2075 Hepatitis B Immunization Completed 001, 2000, 2000 DTaP/Tdap/Td Immunization Discontinued 2011, 08/09/2006, 10/19/2001, Additional history exists TdaP Immunization Completed 05/10/2012 Meningococcal Immunization (ACWY) Completed 06/09/2017 Pneumococcal Immunization Combined Aged Out No longer eligible based on patient's age to complete this topic Rotavirus Immunization Aged Out No lo nger eligible based on patient's age to complete this topic Insurance [employer] Care Teams Store Sales Consultant Relationship Specialty Start Date End Date Becky Carroll MD [address] [address] PCP - General Pediatrics 10/01/15 Kristina Rivera MD [address] [place] [address] Otolaryngology 10/01/15
--- OUTSIDE RECORDS SUMMARY | 2025-04-16 01:16 | XMS_ITS | Clinical Summary ---
Author Organization [facility] Address [address] [place] [address] Care Team Providers Care Dehydration Unit Operator Name Role Phone Unavailable Primary Care Provider Unavailabl e Source Comments [facility],non-owned Affiliates and Associated Physician Practices is amultiple site organization consisting of ambulatory clinics and hospital sitesin [place] and [place]. This disclosure is being madepursuant to the Care Everywhere program and may not contain all information available regarding this patient. 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 Gender Identity Not on file Sexual Orientation Not on file Plan of Treatment Health Maintenance Due Date Last Done Comments PAP SMEAR 2000 HIV SCREENING 2015 HPV VACCINE (1 - 3-dose series) 2015 CHLAMYDIA/GONORRHEA SCREENING 2016 HEPATITIS C SCREENING 07/17/2018 DTAP/TDAP/TD VACCINES (1 - Tdap) 2019 HEPATITIS B VACCINE (1 of 3 - 19+ 3-dose series) 2019 COVID-19 VACCINE (1 - 2023-2 5 season) 2024 DEPRESSION SCREENING 11/15/2024 INFLUENZA VACCINE (Season Ended) 2025 ZOSTER VACCINE (1 of 2) 2050 HIB VACCINE Aged Out No longer eligi ble based on patient's age to complete this topic MENINGOCOCCAL (Group B) VACC INE SHARED DECISION-MAKING Aged Out No longer eligibl e based on patient's age to complete this topic MENINGOCOCCAL GROUPS A/C/Y/W VACCINE Aged Out No longer eligible b ased on patient's age to complete this topic PNEUMOCOCCAL VACCINE Aged Out No long er eligible based on patient's age to complete this topic Insurance [facility]
--- OUTSIDE RECORDS SUMMARY | 2025-04-16 01:18 | XMS_ITS ---
Author Organization [facility] Address [address] [place], [place] [id number] Care Team Providers Care Chemical Treatment Plant Technician Name Role Phone MINERVA DEL CID Primary Care Provider REASON FOR VISIT refill sertraline # Medications Medication SIG (Take, Route, Fr equency, Duration) Notes Start Date End Date Status sertraline 100 mg 1 tab(s) orally once a day for 90 days Active Encounters Encounter Location Date Provider Diagnosis [facility] [address] [id number] 02/07/2024 MINERVA DEL CID Plan Of Treatment Medication Medication Name Sig Start Date Stop Date Notes sertraline 100 mg 1 tab(s) orally once a day for 90 days Progress Notes * Jill VILLEGAS NDOB:04/2000 (23 yo F)Acc No.[id number]:02/07/2024 Patient: Berta sigridslavaJill :2000 A ge:23 Y S ex:Female Address:[address] [place] [address] * Refills refill sertraline tablet, 100 mg, orally, 90 Tablet, 1 tab(s), once a day, 90 days, Refills=0 * true * Date: Generated for Bijali jody/Fakareng/eTransmitting on: 0 04/16/2025 01:18 AM CDT
--- OUTSIDE RECORDS SUMMARY | 2025-04-16 01:18 | XMS_ITS | Patient Health Record ---
Author Organization [facility] ([id number]) Address [address] [place] [address] Care Team Providers Care Seismograph Supervisor Name Role Phone Sosa Wells Primary Care Provider UnavailAnitra Block Unavailable [phone] Presley Cuevas Unavailable [phone] Db Fitch Unavailable [phone] [employer], Provider Unavailable Unavailab le Allergies Allergen (clinical drug ingredient) Drug/Non Drug Allergy documented on EMR Reaction Allergy Type Onset Date Status Substance with penicillin structure and antibacterial mechanism of action (substance) CILLIN (uncoded) hives Allergy Ac tive Penicillin Unknown Drug Allergy Active Results Component Value Reference Range Notes -Vitamin D, 25-Hydroxy Reviewed date:05/10/2024 09:05:15 PM Interpretation:Normal [facility]forming [facility], [address] [place] [id number], Phone - [phone], [facility] Notes/Report: Vitamin D, 25-Hydroxy 30.4 30.0-100.0 ng/mL Vitamin D deficiency has been defined by the Johnson of Medicine and an Endocrine Society practice guideline as a level of serum 25-OH vitamin D less than 20 ng/mL (1,2). The Endocrine Society went on to further define vitamin D insufficiency as a level between 21 and 29 ng/mL (2). 1. IOM (Johnson of Medicine). 2010. Dietary reference intakes for calcium and D. [place]: The National Academies Press. 2. Moises MF, Jovanni LEVI, Ovidio AUSTIN, et al. Evaluation, treatment, and prevention of vitamin D deficiency: an Endocrine Society clinical practice guideline. JCEM. 2010; 96(7):1911-30. -Haemophilus influenzae B Ig G Reviewed date:05/15/2024 07:34:48 AM Interpretation:Normal Performing Lab:[facility], [address] [place] [id number], Phone - [phone], Director - PhDBCNeil Notes/Report: Haemophilus influenzae B IgG 1.28 NOTE: An anti-Hib level of 0.15 ug/mL is generally accepted as the minimum level for protection. Optimal protection post-vaccination requires a level greater than 1.00 ug/mL. -Tetanus/Diphtheria Ab Reviewed date:05/17/2024 12:34:34 PM Interpretation:Normal Performing Lab:[facility], [address] [place] [id number], Phone - [phone], Director - PhDBCNeil Notes/Report: Tetanus Antitoxoid IgG Ab 4.04 <0.10 IU/mL Interpretation: Non-Protective <0.10 Protective >=0.10 Results for this test are for research purposes only by the assay's pattern repair person. The performance characteristics of this product have not been established. Results should not be used as a diagnostic procedure without confirmation of the diagnosis by another medically established diagnostic product or procedure. Diphtheria Antitoxoid Ab 1.23 <0.10 IU/mL Interpretation: Non-Protective <0.10 Protective >=0.10 . For research use only. -Pneumococcal Ab (23 Serotyp e) Reviewed date:05/15/2024 07:34:32 AM Interpretation:Normal Performing Lab:[facility], [address] [place] [id number], Phone - [phone], Director - PhDBCNeil Notes/Report: Pneumo Ab Type 1* >17.4 >1.3 ug/mL Pneumo Ab Type 3* 0.6 >1.3 ug/mL Pneumo Ab Type 4* 2.3 >1.3 ug/mL Pneumo Ab Type 8* 63.9 >1.3 ug/mL Pneumo Ab Type 9 (9N)* 13.3 >1.3 ug/mL Pneumo Ab Type 12 (12F)* 1.4 >1.3 ug/mL Pneumo Ab Type 14* >30.6 >1.3 ug/mL Pneumo Ab Type 17 (17F)* 1.7 >1.3 ug/mL Pneumo Ab Type 19 (19F)* 8.7 >1.3 ug/mL Pneumo Ab Type 2* 30.1 >1.3 ug/mL Pneumo Ab Type 20* 6.2 >1.3 ug/mL Pneumo Ab Type 22 (22F)* 37.1 >1.3 ug/mL Pneumo Ab Type 23 (23F)* >31.2 >1.3 ug/mL Pneumo Ab Type 26 (6B)* 1.8 >1.3 ug/mL Pneumo Ab Type 34 (10A)* 34.8 >1.3 ug/mL Pneumo Ab Type 43 (11A)* 1.6 >1.3 ug/mL Pneumo Ab Type 5* 7.4 >1.3 ug/mL Pneumo Ab Type 51 (7F)* 6.7 >1.3 ug/mL Pneumo Ab Type 54 (15B)* 10.8 >1.3 ug/mL Pneumo Ab Type 56 (18C)* 12.0 >1.3 ug/mL Pneumo Ab Type 57 (19A)* 14.9 >1.3 ug/mL Pneumo Ab Type 68 (9V)* >16.2 >1.3 ug/mL Pneumo Ab Type 70 (33F)* 17.7 >1.3 ug/mL *This test was developed and its performance characteristics determined by [employer]. It has not been cleared or approved by the U.S. Food and Drug Administration. FLAG Interpretation: A = Abnormal, H = High, L = Low Reason For Referral No Information Medications Medication SIG (Take, Route, Frequency, Duration) Notes Start Date End Date Status NASAL WASHES N/A as directed intranasally as needed for 30 days Active EpiPen 2-Colby 0.3 mg as directed intramuscularly once for 30 days Active ALBUTEROL (EQV-PROAIR HFA) 90 MCG/INH 2 PUFF(S) INHALED EVERY 6 HOURS *Please review for potential replacement for e-prescription and drug interaction check* Not-Taking Sertraline HCl 100 MG 1 tab(s) orally once a day for 30 day(s) Active ALBUTEROL (EQV-PROAIR HFA) 90 mcg/inh 2 puff(s) inhaled every 6 hours for 30 days Active Metoprolol Succinate ER 50 MG TAKE 1 TABLET BY MOUTH DAILY for 90 days Active AEROCHAMBER MDI SPACER - MOUTHPIECE (ADULT) N/A As directed PO Per asthma action plan for 30 days Active Montelukast Sodium 10 MG 1 tab(s) orally 60 minutes prior to SCIT for 30 days Active Azelastine HCl 137 MCG/SPRAY 2 spray(s) intranasally 2 times a day for 90 days Not-Taking EPIPEN 2-COLBY 0.3 mg as directed intramuscularly once for 30 days Active Cetirizine HCl 10 MG 1 tab(s) orally once a day for 30 days Not-Taking Wellbutrin SR 150 MG 1 tab(s) orally 2 times a day for 30 day(s) Not-Taking CETIRIZINE 10 mg 1 tab(s) orally once a day for 30 days Active AZELASTINE NASAL 137 mcg/inh 2 spray(s) intranasally 2 times a day for 30 days Not-Taking Xulane 150-35 MCG/24HR as directed Transdermal Active Fluticasone Propionate 50 MCG/ACT 2 sprays in each nostril Nasally Twice a day for 90 days 04/04/2025 Active Famotidine 20 MG 1 tablet Orally Twice a day for 30 days Active Symbicort 160-4.5 MCG/ACT 2 puff(s) inhaled 2 times a day for 30 day(s) Not-Taking Ipratropium Embudo 0.06 % 2 sprays in each nostril Nasally Twice a day for 30 days Active Vitamin D Active Famotidine 40 mg 1 tab(s) orally 60 mins prior to SCIT for 30 days Not-Taking Fluticasone Propionate 50 MCG/ACT 1 spray in each nostril Nasally Twice a day for 90 days Active Pantoprazole Sodium 40 MG 1 tab(s) orally once a day for 30 day(s) Not-Taking Montelukast Sodium 10 MG 1 tablet Orally Once a day for 90 days Active Triamcinolone Acetonide 0.1 % 1 madonna applied topically for 30 days Not-Taking Trelegy Ellipta 200-62.5-25 MCG/ACT 1 puff Inhalation Once a day for 90 days Active Trelegy Ellipta 100 MCG-62.5 MCG-25 MCG/INH INHALE 1 PUFF BY MOUTH EVERY DAY for 30 *Please review and pick correct strength-formula tion from [employer] options. If intended option is not shown, discontinue and re-order from Quick Search* Not-Taking Cetirizine HCl 10 MG 1 tablet Orally Twice a day for 30 days Active Cetirizine HCl 10 MG 1 tab(s) orally once a day Not-Taking Azelastine HCl 137 MCG/SPRAY 2 spray(s) intranasally 2 times a day for 30 days Not-Taking Famotidine 20 MG TAKE 1 TABLET BY MOUTH TWICE DAILY for 90 Active TRIAMCINOLONE TOPICAL 0.1% 1 madonna applied topically for 30 days Active Trelegy Ellipta 200-62.5-25 MCG/ACT INHALE 1 PUFF BY MOUTH DAILY Inhalation Once a day for 30 days Active SIT (TRADITIONAL) variable per schedule SC per schedule for 1 days Active Fluticasone Propionate 50 MCG/ACT 2 spray(s) in each nostril twice a day for 30 days Not-Taking Immunizations Vaccine Route Administration Date Status Comme nts NOC PedvaxHIB IM Intramuscular 03/09/2024 Administered NOC Pneumovax 23 IM Intramuscular 03/16/2024 Administered TDAP IM Intramuscular 03/16/2024 Administered Allergy Immunotherapy Weekly Unknown 07/17/2019 Administered Portal Information Social History Tobacco Use: Social History Observation Description Date Details (start date - stop date) Never Smoker NA - NA Tobacco Control (Standard) Question Answer Notes Tobacco use: Nonsmoker Problems Problem Type SNOMED Code ICD Code Onset Dates Problem Status W/U Status Risk Notes Problem Vitamin D deficiency (74396051) Vitamin D deficiency, unspecified (E55.9) Active confirmed Problem Anxiety disorder (160141598) Anxiety disorder, unspecified (F41.9) Active confirmed Problem Chronic allergic conjunctivitis (66259655) Other chronic allergic conjunctivitis (H10.45) Active confirmed Problem Allergic rhinitis caused by pollen (disorder) (31632730) Allergic rhinitis due to pollen (J30.1) Active confirmed Problem Allergic rhinitis (59479071) Other allergic rhinitis (J30.89) Active confirmed Problem Chronic sinusitis (63980706) Chronic sinusitis, unspecified (J32.9) Active confirmed Problem Uncomplicated moderate persistent asthma (784846636) Moderate persistent asthma, uncomplicated (J45.40) Active confirmed Problem Allergic rhinitis caused by animal hair and dander (806036485720939) Allergic rhinitis due to animal (cat) (dog) hair and dander (J30.81) Active confirmed Problem Dysphagia (65311465) Dysphagia, unspecified (R13.10) Active confirmed Problem Chronic sinusitis (01512911) Other chronic sinusitis (J32.8) Active confirmed Problem Allergy to penicillin (41142972) Allergy status to penicillin (Z88.0) Active confirmed Problem Ingestion dermatitis caused by food (562863471) Dermatitis due to ingested food (L27.2) Active confirmed Vital Signs Blood pressure diastolic 71 mm Hg 02/13/2025 Oximetry 99 % 02/13/2025 Height 68 in 02/13/2025 Blood pressure systolic 128 mm Hg 02/13/2025 Weight 244.8 lbs 02/13/2025 BMI 37.22 kg/m2 02/13/2025 Encounters Encounter Location Date Provider Diagnosis [address] [phone] 04/29/2024 Provider [facility] [address] [place] [phone] 04/17/2024 Presley Cuevas Allergic rhinitis du e to pollen J30.1 ; Other allergic rhinitis J30.89 ; Allergic rhinitis due to animal (cat) (dog) hair and dander J30.81 and Other chronic allergic conjunctivitis H10.[address] [phone] 05/08/2024 Anitra Sutton Allergic rhinitis du e to animal (cat) (dog) hair and dander J30.81 ; Other allergic rhinitis J30.89 ; Other chronic allergic conjunctivitis H10.45 ; Moderate persistent asthma, uncomplicated J45.40 ; Dysphagia, unspecified R13.10 ; Allergic rhinitis due to pollen J30.1 ; Dermatitis due to ingested food L27.2 ; Chronic sinusitis, unspecified J32.9 ; Vitamin D deficiency, unspecified E55.9 ; Allergy status to penicillin Z88.0 and Elevated blood-pressure reading, without diagnosis of hypertension R03.0 [facility] [address] [place] [phone] 05/23/2024 Presley Cuevas Allergic rhinitis du e to pollen J30.1 ; Other allergic rhinitis J30.89 ; Allergic rhinitis due to animal (cat) (dog) hair and dander J30.81 and Other chronic allergic conjunctivitis H10.[address] [phone] 06/05/2024 Presley Cuevas Allergic rhinitis du e to pollen J30.1 ; Other allergic rhinitis J30.89 ; Allergic rhinitis due to animal (cat) (dog) hair and dander J30.81 and Other chronic allergic conjunctivitis H10.45 [facility] [address] [place] [phone] 06/19/2024 Presley Cuevas Allergic rhinitis du e to pollen J30.1 ; Other allergic rhinitis J30.89 ; Allergic rhinitis due to animal (cat) (dog) hair and dander J30.81 and Other chronic allergic conjunctivitis H10.45 [facility] [address] [place] [phone] 07/03/2024 Presley Cuevas Allergic rhinitis du e to pollen J30.1 ; Other allergic rhinitis J30.89 ; Allergic rhinitis due to animal (cat) (dog) hair and dander J30.81 and Other chronic allergic conjunctivitis H10.[address] [phone] 07/18/2024 Presley Cuevas Allergic rhinitis du e to pollen J30.1 ; Other allergic rhinitis J30.89 ; Allergic rhinitis due to animal (cat) (dog) hair and dander J30.81 and Other chronic allergic conjunctivitis H10.[address] [address] 07/25/2024 Anitra Sutton Allergic rhinitis du e to pollen J30.1 ; Rash and other nonspecific skin eruption R21 ; Allergic rhinitis due to animal (cat) (dog) hair and dander J30.81 ; Other allergic rhinitis J30.89 ; Other chronic allergic conjunctivitis H10.45 ; Moderate persistent asthma, uncomplicated J45.40 ; Dysphagia, unspecified R13.10 ; Dermatitis due to ingested food L27.2 ; Chronic sinusitis, unspecified J32.9 ; Vitamin D deficiency, unspecified E55.9 ; Allergy status to penicillin Z88.0 and Elevated blood-pressure reading, without diagnosis of hypertension R03.0 [facility] [address] [place] [phone] 08/01/2024 Presley Cuevas Allergic rhinitis du e to pollen J30.1 ; Other allergic rhinitis J30.89 ; Allergic rhinitis due to animal (cat) (dog) hair and dander J30.81 and Other chronic allergic conjunctivitis H10.45 [facility] [address] [place] [phone] 08/17/2024 Presley Cuevas Allergic rhinitis du e to pollen J30.1 ; Other allergic rhinitis J30.89 ; Allergic rhinitis due to animal (cat) (dog) hair and dander J30.81 and Other chronic allergic conjunctivitis H10.45 [facility] [address] [place] [phone] 08/28/2024 Presley Cuevas Allergic rhinitis du e to pollen J30.1 ; Other allergic rhinitis J30.89 ; Allergic rhinitis due to animal (cat) (dog) hair and dander J30.81 and Other chronic allergic conjunctivitis H10.45 [facility] [address] [place] [phone] 09/11/2024 Presley Cuevas Allergic rhinitis du e to pollen J30.1 ; Other allergic rhinitis J30.89 ; Allergic rhinitis due to animal (cat) (dog) hair and dander J30.81 and Other chronic allergic conjunctivitis H10.45 [facility] [address] [place] [phone] 09/25/2024 Presley Cuevas Allergic rhinitis du e to pollen J30.1 ; Other allergic rhinitis J30.89 ; Allergic rhinitis due to animal (cat) (dog) hair and dander J30.81 and Other chronic allergic conjunctivitis H10.45 [facility] [address] [place] [phone] 10/02/2024 Presley Cuevas Allergic rhinitis du e to pollen J30.1 ; Other allergic rhinitis J30.89 ; Allergic rhinitis due to animal (cat) (dog) hair and dander J30.81 and Other chronic allergic conjunctivitis H10.45 [facility] [address] [place] [address] [facility] [address] [phone] 10/10/2024 Presley Cuevas Allergic rhinitis du e to pollen J30.1 ; Other allergic rhinitis J30.89 ; Allergic rhinitis due to animal (cat) (dog) hair and dander J30.81 and Other chronic allergic conjunctivitis H10.45 [facility] [address] [place] [address] [facility] [address] [phone] 11/06/2024 Presley Cuevas Allergic rhinitis du e to pollen J30.1 ; Other allergic rhinitis J30.89 ; Allergic rhinitis due to animal (cat) (dog) hair and dander J30.81 and Other chronic allergic conjunctivitis H10.45 [facility] [address] [place] [phone] 12/04/2024 Presley Cuevas Allergic rhinitis du e to pollen J30.1 ; Other allergic rhinitis J30.89 ; Allergic rhinitis due to animal (cat) (dog) hair and dander J30.81 and Other chronic allergic conjunctivitis H10.45 [facility] [address] [place] [phone] 01/01/2025 Presley Cuevas Allergic rhinitis du e to pollen J30.1 ; Other allergic rhinitis J30.89 ; Allergic rhinitis due to animal (cat) (dog) hair and dander J30.81 and Other chronic allergic conjunctivitis H10.45 [facility] [address] [place] [phone] 01/29/2025 Presley Cuevas Allergic rhinitis du e to pollen J30.1 ; Other allergic rhinitis J30.89 ; Allergic rhinitis due to animal (cat) (dog) hair and dander J30.81 and Other chronic allergic conjunctivitis H10.45 [facility] [address] [place] [address] [facility] [address] [phone] 02/13/2025 Anitra Sutton Allergic rhinitis du e to pollen J30.1 ; Allergic rhinitis due to animal (cat) (dog) hair and dander J30.81 ; Other allergic rhinitis J30.89 ; Other chronic allergic conjunctivitis H10.45 ; Moderate persistent asthma, uncomplicated J45.40 ; Dysphagia, unspecified R13.10 ; Dermatitis due to ingested food L27.2 ; Chronic sinusitis, unspecified J32.9 ; Vitamin D deficiency, unspecified E55.9 ; Rash and other nonspecific skin eruption R21 ; Allergy status to penicillin Z88.0 and Elevated blood-pressure reading, without diagnosis of hypertension R03.0 [facility] [address] [place] [phone] 03/14/2025 Presley Cuevas Allergic rhinitis du e to pollen J30.1 ; Other allergic rhinitis J30.89 ; Allergic rhinitis due to animal (cat) (dog) hair and dander J30.81 and Other chronic allergic conjunctivitis H10.[address] [phone] 03/19/2025 Presley Cuevas Allergic rhinitis du e to pollen J30.1 ; Other allergic rhinitis J30.89 ; Allergic rhinitis due to animal (cat) (dog) hair and dander J30.81 and Other chronic allergic conjunctivitis H10.[address] [phone] 03/26/2025 Presley Cuevas Allergic rhinitis du e to pollen J30.1 ; Other allergic rhinitis J30.89 ; Allergic rhinitis due to animal (cat) (dog) hair and dander J30.81 and Other chronic allergic conjunctivitis H10.[address] [phone] 05/17/2024 Db Fitch [facility] [address] [place] [address] 07/25/2024 Anitra Sutton [address] [phone] 12/19/2024 Anitra Sutton Moderate persistent asthma, uncomplicated J45.[address] [phone] 02/08/2025 Anitra Sutton Moderate persistent asthma, uncomplicated J45.40 [facility] [address] [facility] [address] [place] [address] 04/02/2025 Anitra Sutton Allergic rhinitis du e to pollen J30.[address] [phone] 04/04/2025 Anitra Sutton Allergic rhinitis du e to pollen J30.[address] [phone] 04/04/2025 Anitra Sutton Assessments Encounter Date Diagnosis (ICD Code) Assessment Notes Treatment Notes Treatment Clinical Notes Section Notes 04/17/2024 Allergic rhinitis due to pollen (ICD-10 - J30.1) 04/17/2024 Other allergic rhinitis (ICD-10 - J30.89) 05/08/2024 Allergic rhinitis due to animal (cat) (dog) hair and dander (ICD-10 - J30.81) Follow allergen avoidance, meds and continue SCIT as an adjunctive treatment to current regimen 05/23/2024 Allergic rhinitis due to pollen (ICD-10 - J30.1) 05/23/2024 Other allergic rhinitis (ICD-10 - J30.89) 06/05/2024 Allergic rhinitis due to pollen (ICD-10 - J30.1) 06/05/2024 Other allergic rhinitis (ICD-10 - J30.89) 06/19/2024 Allergic rhinitis due to pollen (ICD-10 - J30.1) 06/19/2024 Other allergic rhinitis (ICD-10 - J30.89) 07/03/2024 Allergic rhinitis due to pollen (ICD-10 - J30.1) 07/03/2024 Other allergic rhinitis (ICD-10 - J30.89) 07/18/2024 Allergic rhinitis due to pollen (ICD-10 - J30.1) 07/18/2024 Other allergic rhinitis (ICD-10 - J30.89) 07/25/2024 Rash and other nonspecific skin eruption (ICD-10 - R21) Jill presents with complaints of raised, erythematous and pruritic wheals ongoing for the past three days. She denies clear trigger, no changes noted to her diet, medication regimen or environment. She denies NSAID, opioid or alcohol use. Wheals come and go within 24 hours. She has been taking Zyrtec or Benadryl with minimal benefit. She reports sporadic history of hives in the past. Symptoms occurring for < 6 weeks collectively. She denies associated systemic symptoms. - Consider acute urticaria vs other. - Will start Zyrtec 10 mg BID, Pepcid 20 mg BID and Singulair 10 mg at night. - If symptoms persist > 6 weeks consider further work-up. - If symptoms do not respond to antihistamines consider consult with dermatology. - Follow-up in 4 weeks for further evaluation and management 07/25/2024 Allergic rhinitis due to pollen (ICD-10 - J30.1) Jill clearly suffers from atopic disease based upon our previous skin testing and clinical history. Accordingly, we have encouraged her medication regimen, discussed nasal washes and allergy-specific avoidance measures. - Previously on SCIT x 9 years. - Jill is now back on SCIT. Previously reported LLR dosing. She is currently triple premedicating. Vials A and B reduced to 0.2 mL for the time being. - Continue premedication with Zyrtec, Pepcid and Singulair. Continue topical triamcinolone for use as-needed. - Jill was not due for dosing today. - Jill continues to endorse daily nasal congestion. Not currently using Flonase as too many sprays causes nose bleeds. Hold azelastine and Flonase at this time, will start trial of ipratropium bromide. No difference noted with Ryaltris. - She is aware to carry AIE to all SCIT visits and for two hours after. - Discussed increasing SCIT frequency in peak seasons. - Follow-up as above 08/01/2024 Allergic rhinitis due to pollen (ICD-10 - J30.1) 08/01/2024 Other allergic rhinitis (ICD-10 - J30.89) 08/17/2024 Allergic rhinitis due to pollen (ICD-10 - J30.1) 08/17/2024 Other allergic rhinitis (ICD-10 - J30.89) 08/28/2024 Allergic rhinitis due to pollen (ICD-10 - J30.1) 08/28/2024 Other allergic rhinitis (ICD-10 - J30.89) 09/11/2024 Allergic rhinitis due to pollen (ICD-10 - J30.1) 09/11/2024 Other allergic rhinitis (ICD-10 - J30.89) 09/25/2024 Allergic rhinitis due to pollen (ICD-10 - J30.1) 09/25/2024 Other allergic rhinitis (ICD-10 - J30.89) 10/02/2024 Allergic rhinitis due to pollen (ICD-10 - J30.1) 10/02/2024 Other allergic rhinitis (ICD-10 - J30.89) 10/10/2024 Allergic rhinitis due to pollen (ICD-10 - J30.1) 10/10/2024 Other allergic rhinitis (ICD-10 - J30.89) 11/06/2024 Allergic rhinitis due to pollen (ICD-10 - J30.1) 11/06/2024 Other allergic rhinitis (ICD-10 - J30.89) 12/04/2024 Allergic rhinitis due to pollen (ICD-10 - J30.1) 12/04/2024 Other allergic rhinitis (ICD-10 - J30.89) 12/19/2024 Moderate persistent asthma, uncomplicated (ICD-10 - J45.40) 01/01/2025 Allergic rhinitis due to pollen (ICD-10 - J30.1) 01/01/2025 Other allergic rhinitis (ICD-10 - J30.89) 01/29/2025 Other allergic rhinitis (ICD-10 - J30.89) 02/08/2025 Moderate persistent asthma, uncomplicated (ICD-10 - J45.40) 01/29/2025 Allergic rhinitis due to pollen (ICD-10 - J30.1) 02/13/2025 Allergic rhinitis due to pollen (ICD-10 - J30.1) Jill clearly suffers from atopic disease based upon our previous skin testing and clinical history. Accordingly, we have encouraged her medication regimen, discussed nasal washes and allergy-specific avoidance measures. - Previously on SCIT x 9 years. - Jill is now back on SCIT. Previously reported LLR dosing. She is currently triple premedicating. Vials A and B reduced to 0.2 mL for the time being. - Continue premedication with Zyrtec, Pepcid and Singulair. Continue topical triamcinolone for use as-needed. - Jill was not due for dosing today. - Jill continues to endorse daily nasal congestion. Not currently using Flonase as too many sprays causes nose bleeds. Hold azelastine and Flonase at this time, will start trial of ipratropium bromide. No difference noted with Ryaltris. We have trialed various nasal sprays in the past, however they have either provided no symptom relief or caused nose bleeds. Due to persistent symptoms, I recommend evaluation by ENT. Jill voiced understanding. - She is aware to carry AIE to all SCIT visits and for two hours after. - Discussed increasing SCIT frequency in peak seasons. - Follow-up in 1-2 months for further evaluation and management 02/13/2025 Allergic rhinitis due to animal (cat) (dog) hair and dander (ICD-10 - J30.81) Follow allergen avoidance, meds and continue SCIT as an adjunctive treatment to current regimen 03/14/2025 Allergic rhinitis due to pollen (ICD-10 - J30.1) 03/14/2025 Other allergic rhinitis (ICD-10 - J30.89) 03/19/2025 Allergic rhinitis due to pollen (ICD-10 - J30.1) 03/19/2025 Other allergic rhinitis (ICD-10 - J30.89) 03/26/2025 Allergic rhinitis due to pollen (ICD-10 - J30.1) 03/26/2025 Other allergic rhinitis (ICD-10 - J30.89) 04/02/2025 Allergic rhinitis due to pollen (ICD-10 - J30.1) 04/04/2025 Allergic rhinitis due to pollen (ICD-10 - J30.1) 03/26/2025 Allergic rhinitis due to animal (cat) (dog) hair and dander (ICD-10 - J30.81) 03/19/2025 Allergic rhinitis due to animal (cat) (dog) hair and dander (ICD-10 - J30.81) 03/14/2025 Allergic rhinitis due to animal (cat) (dog) hair and dander (ICD-10 - J30.81) 02/13/2025 Other allergic rhinitis (ICD-10 - J30.89) Follow allergen avoidance, meds and continue SCIT as an adjunctive treatment to current regimen 01/29/2025 Allergic rhinitis due to animal (cat) (dog) hair and dander (ICD-10 - J30.81) 01/01/2025 Allergic rhinitis due to animal (cat) (dog) hair and dander (ICD-10 - J30.81) 12/04/2024 Allergic rhinitis due to animal (cat) (dog) hair and dander (ICD-10 - J30.81) 11/06/2024 Allergic rhinitis due to animal (cat) (dog) hair and dander (ICD-10 - J30.81) 10/10/2024 Allergic rhinitis due to animal (cat) (dog) hair and dander (ICD-10 - J30.81) 10/02/2024 Allergic rhinitis due to animal (cat) (dog) hair and dander (ICD-10 - J30.81) 09/25/2024 Allergic rhinitis due to animal (cat) (dog) hair and dander (ICD-10 - J30.81) 09/11/2024 Allergic rhinitis due to animal (cat) (dog) hair and dander (ICD-10 - J30.81) 08/28/2024 Allergic rhinitis due to animal (cat) (dog) hair and dander (ICD-10 - J30.81) 08/17/2024 Allergic rhinitis due to animal (cat) (dog) hair and dander (ICD-10 - J30.81) 08/01/2024 Allergic rhinitis due to animal (cat) (dog) hair and dander (ICD-10 - J30.81) 07/25/2024 Allergic rhinitis due to animal (cat) (dog) hair and dander (ICD-10 - J30.81) Follow allergen avoidance, meds and continue SCIT as an adjunctive treatment to current regimen 07/18/2024 Allergic rhinitis due to animal (cat) (dog) hair and dander (ICD-10 - J30.81) 07/03/2024 Allergic rhinitis due to animal (cat) (dog) hair and dander (ICD-10 - J30.81) 06/19/2024 Allergic rhinitis due to animal (cat) (dog) hair and dander (ICD-10 - J30.81) 06/05/2024 Allergic rhinitis due to animal (cat) (dog) hair and dander (ICD-10 - J30.81) 05/23/2024 Allergic rhinitis due to animal (cat) (dog) hair and dander (ICD-10 - J30.81) 04/17/2024 Allergic rhinitis due to animal (cat) (dog) hair and dander (ICD-10 - J30.81) 05/08/2024 Other allergic rhinitis (ICD-10 - J30.89) Follow allergen avoidance, meds and continue SCIT as an adjunctive treatment to current regimen 04/17/2024 Other chronic allergic conjunctivitis (ICD-10 - H10.45) 05/08/2024 Other chronic allergic conjunctivitis (ICD-10 - H10.45) Given ocular signs and symptoms I encouraged allergy avoidance measures and meds as above. If symptoms persist, consider adding additional medications including intraocular antihistamine/mast cell stabilizer, PRN and continue SCIT as an adjunctive measure. 05/23/2024 Other chronic allergic conjunctivitis (ICD-10 - H10.45) 06/05/2024 Other chronic allergic conjunctivitis (ICD-10 - H10.45) 06/19/2024 Other chronic allergic conjunctivitis (ICD-10 - H10.45) 07/03/2024 Other chronic allergic conjunctivitis (ICD-10 - H10.45) 07/18/2024 Other chronic allergic conjunctivitis (ICD-10 - H10.45) 08/01/2024 Other chronic allergic conjunctivitis (ICD-10 - H10.45) 07/25/2024 Other allergic rhinitis (ICD-10 - J30.89) Follow allergen avoidance, meds and continue SCIT as an adjunctive treatment to current regimen 08/17/2024 Other chronic allergic conjunctivitis (ICD-10 - H10.45) 08/28/2024 Other chronic allergic conjunctivitis (ICD-10 - H10.45) 09/11/2024 Other chronic allergic conjunctivitis (ICD-10 - H10.45) 09/25/2024 Other chronic allergic conjunctivitis (ICD-10 - H10.45) 10/02/2024 Other chronic allergic conjunctivitis (ICD-10 - H10.45) 10/10/2024 Other chronic allergic conjunctivitis (ICD-10 - H10.45) 11/06/2024 Other chronic allergic conjunctivitis (ICD-10 - H10.45) 12/04/2024 Other chronic allergic conjunctivitis (ICD-10 - H10.45) 01/01/2025 Other chronic allergic conjunctivitis (ICD-10 - H10.45) 01/29/2025 Other chronic allergic conjunctivitis (ICD-10 - H10.45) 02/13/2025 Other chronic allergic conjunctivitis (ICD-10 - H10.45) Given ocular signs and symptoms I encouraged allergy avoidance measures and meds as above. If symptoms persist, consider adding additional medications including intraocular antihistamine/mast cell stabilizer, PRN and continue SCIT as an adjunctive measure. 03/14/2025 Other chronic allergic conjunctivitis (ICD-10 - H10.45) 03/19/2025 Other chronic allergic conjunctivitis (ICD-10 - H10.45) 03/26/2025 Other chronic allergic conjunctivitis (ICD-10 - H10.45) 02/13/2025 Moderate persistent asthma, uncomplicated (ICD-10 - J45.40) Reported history of asthma with dx given by Dr. Irizarry. Was using MP 1-2 times a week, better now on Trelegy, however still reporting symptoms in the morning and at night. Does notice worsening symptoms with exercise - mostly SOB. No prior smoking history. No prior oral steroids or lower airway infections. - Given history and presentation, spirometry was performed previously that showed post-BD response meeting ATS criteria for asthma. Spirometry repeated last visit that showed normal FEV1, FVC and FEV1%. 9% increase in FEV1 compared to last visit. - Continue high-dose Trelegy at this time, she is aware to rinse her mouth after use. - Continue MP per AAP, which was previously formulated and discussed. - Continue SCIT. - Follow-up as above 07/25/2024 Other chronic allergic conjunctivitis (ICD-10 - H10.45) Given ocular signs and symptoms I encouraged allergy avoidance measures and meds as above. If symptoms persist, consider adding additional medications including intraocular antihistamine/mast cell stabilizer, PRN and continue SCIT as an adjunctive measure. 05/08/2024 Moderate persistent asthma, uncomplicated (ICD-10 - J45.40) Reported history of asthma with dx given by Dr. Irizarry. Was using MP 1-2 times a week, better now on Trelegy, however still reporting symptoms in the morning and at night. Does notice worsening symptoms with exercise - mostly SOB. No prior smoking history. No prior oral steroids or lower airway infections. - Given history and presentation, spirometry was performed previously that showed post-BD response meeting ATS criteria for asthma. Spirometry repeated last visit that showed normal FEV1, FVC and FEV1%. 9% increase in FEV1 compared to last visit. ACT is today 23 today. - Continue high-dose Trelegy at this time, she is aware to rinse her mouth after use. - Continue MP per AAP, which was previously formulated and discussed. - Continue SCIT. - Follow-up in as scheduled for SCIT dosing and 3-4 months for further evaluation and management 05/08/2024 Dysphagia, unspecified (ICD-10 - R13.10) Noted history of recurrent food sticking in regard to breads, noodles, and meats. No prior GI evaluation. Will have episodes of vomiting in relation. History is concerning for esophageal stricture vs EoE vs other. Advised evaluation with GI 07/25/2024 Moderate persistent asthma, uncomplicated (ICD-10 - J45.40) Reported history of asthma with dx given by Dr. Irizarry. Was using MP 1-2 times a week, better now on Trelegy, however still reporting symptoms in the morning and at night. Does notice worsening symptoms with exercise - mostly SOB. No prior smoking history. No prior oral steroids or lower airway infections. - Given history and presentation, spirometry was performed previously that showed post-BD response meeting ATS criteria for asthma. Spirometry repeated last visit that showed normal FEV1, FVC and FEV1%. 9% increase in FEV1 compared to last visit. - Continue high-dose Trelegy at this time, she is aware to rinse her mouth after use. - Continue MP per AAP, which was previously formulated and discussed. - Continue SCIT. - Follow-up as above 02/13/2025 Dysphagia, unspecified (ICD-10 - R13.10) Noted history of recurrent food sticking in regard to breads, noodles, and meats. No prior GI evaluation. Will have episodes of vomiting in relation. History is concerning for esophageal stricture vs EoE vs other. 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 Only in rare cases does OAS evolve into food anaphylaxis, so carrying AIE device generally not necessary. As in her case, the cooked, extensively peeled/washed and/or processed forms of these foods can be eaten without symptoms. There are numerous case reports of improvement in OAS symptoms in patients undergoing immunotherapy to the cross-reactive pollens 07/25/2024 Dysphagia, unspecified (ICD-10 - R13.10) Noted history of recurrent food sticking in regard to breads, noodles, and meats. No prior GI evaluation. Will have episodes of vomiting in relation. History is concerning for esophageal stricture vs EoE vs other. 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 Only in rare cases does OAS evolve into food anaphylaxis, so carrying AIE device generally not necessary. As in her case, the cooked, extensively peeled/washed and/or processed forms of these foods can be eaten without symptoms. There are numerous case reports of improvement in OAS symptoms in patients undergoing immunotherapy to the cross-reactive pollens 05/08/2024 Allergic rhinitis due to pollen (ICD-10 - J30.1) Jill clearly suffers from atopic disease based upon our previous skin testing and clinical history. Accordingly, we have encouraged her medication regimen, discussed nasal washes and allergy-specific avoidance measures. - Previously on SCIT x 9 years. - Jill is now back on SCIT. Reports LLR after her last dose. She is currently triple premedicating. Will reduce vials A and B to 0.2 mL for the time being. - Continue premedication with Zyrtec, Pepcid and Singulair. Continue topical triamcinolone for use as-needed. - Jill was not due for dosing today. - Jill continues to endorse daily nasal congestion. Not currently using Flonase as too many sprays causes nose bleeds. Hold azelastine and Flonase at this time, will trial Ryaltris to reduce amount of sprays. Samples provided. Restart Flonase and azelastine when samples run out. - She is aware to carry AIE to all SCIT visits and for two hours after. - Discussed increasing SCIT frequency in peak seasons. - Follow-up as scheduled for SCIT dosing and 3 months for further evaluation and management 05/08/2024 Chronic sinusitis, unspecified (ICD-10 - J32.9) Jill endorses frequent sinus infections occurring almost monthly meeting F criteria for modified PIDD work-up. - Work-up showed inadequate protection to s. pneumo, h. influenzae and tetanus. Lucas has since received all three boosters. Due for recheck, order sent. - Jill continues to perceive sinus infections, however it is not clear if symptoms are due to infection or inflammation from atopic disease. See plan above. Consider CT of sinuses if symptoms persist. 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 Only in rare cases does OAS evolve into food anaphylaxis, so carrying AIE device generally not necessary. As in her case, the cooked, extensively peeled/washed and/or processed forms of these foods can be eaten without symptoms. There are numerous case reports of improvement in OAS symptoms in patients undergoing immunotherapy to the cross-reactive pollens 02/13/2025 Chronic sinusitis, unspecified (ICD-10 - J32.9) Jill endorses frequent sinus infections occurring almost monthly meeting JMF criteria for modified PIDD work-up. - Work-up showed inadequate protection to s. pneumo, h. influenzae and tetanus. Lucas has since received all three boosters. Repeat titers show adequate protection. - Jill continues to perceive sinus infections, however it is not clear if symptoms are due to infection or inflammation from atopic disease. See plan above. Consider CT of sinuses if symptoms persist 02/13/2025 Vitamin D deficiency, unspecified (ICD-10 - E55.9) Taking 2,000 IU/day 07/25/2024 Chronic sinusitis, unspecified (ICD-10 - J32.9) Jill endorses frequent sinus infections occurring almost monthly meeting F criteria for modified PIDD work-up. - Work-up showed inadequate protection to s. pneumo, h. influenzae and tetanus. Lucas has since received all three boosters. Repeat titers show adequate protection. - Jill continues to perceive sinus infections, however it is not clear if symptoms are due to infection or inflammation from atopic disease. See plan above. Consider CT of sinuses if symptoms persist 05/08/2024 Vitamin D deficiency, unspecified (ICD-10 - E55.9) Taking 2,000 IU/day 05/08/2024 Allergy status to penicillin (ICD-10 - Z88.0) Reported reaction of hives occuring after ingestion of PCN as a child. No other reports symptoms and has avoided since. History otherwise vague. Advised PCN testing at next opportunity 07/25/2024 Vitamin D deficiency, unspecified (ICD-10 - E55.9) Taking 2,000 IU/day 02/13/2025 Rash and other nonspecific skin eruption (ICD-10 - R21) Jill presented previousl with complaints of raised, erythematous and pruritic wheals ongoing for the past three days. She denies clear trigger, no changes noted to her diet, medication regimen or environment. She denies NSAID, opioid or alcohol use. Wheals come and go within 24 hours. She has been taking Zyrtec or Benadryl with minimal benefit. She reports sporadic history of hives in the past. Symptoms occurring for < 6 weeks collectively. She denies associated systemic symptoms. - Consider acute urticaria vs other. - No recent issues 02/13/2025 Allergy status to penicillin (ICD-10 - Z88.0) Reported reaction of hives occuring after ingestion of PCN as a child. No other reports symptoms and has avoided since. History otherwise vague. Advised PCN testing at next opportunity 07/25/2024 Allergy status to penicillin (ICD-10 - Z88.0) Reported reaction of hives occuring after ingestion of PCN as a child. No other reports symptoms and has avoided since. History otherwise vague. Advised PCN testing at next opportunity 05/08/2024 Elevated blood-pressure reading, without diagnosis of hypertension (ICD-10 - R03.0) BP elevated today without symptoms of urgency or emergency. Continue serial checks and follow-up with PCP 07/25/2024 Elevated blood-pressure reading, without diagnosis of hypertension (ICD-10 - R03.0) BP elevated today without symptoms of urgency or emergency. Continue serial checks and follow-up with PCP 02/13/2025 Elevated blood-pressure reading, without diagnosis of hypertension (ICD-10 - R03.0) BP elevated today without symptoms of urgency or emergency. Continue serial checks and follow-up with PCP Plan Of Treatment Next Appt Details Provider Name:Presley Cuevas , 04/23/2025 03:30:00 PM, [address], [place], [address], Provider Name:Anitra paul, 05/14/2025 04:15:00 PM, [address], [address], Insurance Providers Payer Name Payer Address Payer Phone Subscriber Number Group Number Insured Name Patient Relationship to Insured Coverage Start Date Coverage End Date [facility] [address] [place] [phone] [id number] Deep Villegas Child - Insured has Financial Responsibility Medical (General) History Medical History History ICD Code Mild persistent asthma, uncomplicated J4 5.30 Anxiety disorder, unspecified F41.9 Depression, unspecified F32.A Surgical History Surgery Date(Month/Year) Meniscus (R) surgery 09/11/2016 tonsillectomy/adenoidectomy 2003 removal compacted tooth 2013 wisdom teeth 05/05/2022 right meniscus repair 2016 tonsils 06/16/2004 wisdom teeth removal 2021 Cardiac Ablation 05/2024
--- OUTSIDE RECORDS SUMMARY | 2025-04-16 01:19 | XMS_ITS | Patient Health Record ---
Author Organization [facility] Address [address] [place], [place] [id number] Care Team Providers Care Tuber Machine Operator Helper Name Role Phone MINERVA DEL CID Primary Care Provider [phone] Allergies Allergen (clinical drug ingredient) Drug/Non Drug Allergy documented on EMR Reaction Allergy Type Onset Date Status seasonal (uncoded) Unknown Allergy A ctive amoxicillin / clavulanate Augmentin rash/nausea Drug Allergy Active Omnicef rash/nausea Drug Allergy Activ e Reason For Referral No Information Medications Medication SIG (Take, Route, Frequency, Duration) Notes Start Date End Date Status sertraline 100 mg 1 tab(s) orally once a day for 90 days Active MetroCream 0.75% 1 madonna applied topica lly 2 times a day Active minocycline 100 mg 1 cap(s) orally ever y 12 hours Active Flonase 50 mcg/inh as directed in each nostril once a day Active ZyrTEC-D 5 mg-120 mg 1 tab(s) orally 2 t imes a day Active Kyleena 19.5 mg 1 ea by intrauterine administration once, [id number], exp. 2020 04/17/2020 Acti ve Albuterol (Eqv-Proventil HFA) 90 mcg/inh 2 puff(s) inhaled every 6 hours for 30 day(s) 10/05/2022 Active Immunizations Vaccine Route Administration Date Status Comme nts Boostrix (Tdap) IM Intramuscular 05/10/2012 Administered Comvax(HepB/Hib) Unknown 2000 Administered Comvax(HepB/Hib) Unknown 2000 Administered Comvax(HepB/Hib) Unknown 10/19/2001 Administered Gardasil (HPV) IM Intramuscular 08/22/2009 Administered Infanrix (DTaP) Unknown 2000 Administered Infanrix (DTaP) Unknown 2000 Administered Infanrix (DTaP) Unknown 01/06/2001 Administered Infanrix (DTaP) Unknown 10/19/2001 Administered Infanrix (DTaP) Unknown 08/09/2006 Administered Influenza IM Intramuscular 09/11/2008 Administered Influenza IM Intramuscular 08/22/2009 Administered Influenza IM Intramuscular 10/02/2010 Administered Influenza IM Intramuscular 10/15/2011 Administered IPOL (Polio) Unknown 2000 Administered IPOL (Polio) Unknown 2000 Administered IPOL (Polio) Unknown 07/27/2001 Administered IPOL (Polio) Unknown 08/09/2006 Administered Menactra (MenACWY) IM Intramuscular 05/10/2012 Administere d Menactra (MenACWY) IM Intramuscular 06/09/2017 Administere d MMR II Unknown 07/27/2001 Administered ProQuad (MMRV) Unknown 08/09/2006 Administered Varivax SC Subcutaneous 04/12/2015 Administered Social History Tobacco Use: Social History Observation Description Date Details (start date - stop date) Never Smoker NA - NA Tobacco Use: Question Answer Notes Are you a: nonsmoker Never smoked Alcohol Screening: Question Answer Notes Did you have a drink containing alcohol in the p ast year? No Points 0 Interpretation Negative Section Notes: student student student student. Lives at home with mom and dad. student student. Lives at home with mom and dad. v v v v student. Lives at home with mom and dad. student. Lives at home with mom and dad. student. Lives at home with mom and dad. student. Lives at home with mom and dad. v v student student student student student student student student student student student student student student student student student student student student student student student student student student student student student. Lives at home with mom and dad. student. Lives at home with mom and dad. student. Lives at home with mom and dad. student. Lives at home with mom and dad. student. Lives at home with mom and dad. student. Lives at home with mom and dad. student. Lives at home with mom and dad. student. Lives at home with mom and dad. student. Lives at home with mom and dad. student. Lives at home with mom and dad. student. Lives at home with mom and dad. student. Lives at home with mom and dad. student. Lives at home with mom and dad. student. Lives at home with mom and dad. student. Lives at home with mom and dad. student. Lives at home with mom and dad. student. Lives at home with mom and dad. student. Lives at home with mom and dad. student. Lives at home with mom and dad. student. Lives at home with mom and dad. student. Lives at home with mom and dad. student. Lives at home with mom and dad. student. Lives at home with mom and dad. student. Lives at home with mom and dad. student. Lives at home with mom and dad. v v v v v v v v student. Lives at home with mom and dad. v v student. Lives at home with mom and dad. student student student. Lives at home with mom and dad. student. Lives at home with mom and dad. student. Lives at home with mom and dad. v student. Lives at home with mom and dad. student. Lives at home with mom and dad. student v student. Lives at home with mom and dad. student student. Lives at home with mom and dad. student v student student. Lives at home with mom and dad. student. Lives at home with mom and dad. student. Lives at home with mom and dad. v v v Problems Problem Type SNOMED Code ICD Code Onset Dates Problem Status W/U Status Risk Notes Problem 42185644 Anxiety (F41.9) Active confirmed Problem Overweight (098786922) Overweight child (E66.3) Active confirmed Problem Allergic rhinitis, unspecified (J30.9) Active confirmed Problem 083699068 Encounter for initial prescription of contraceptive pills (Z30.011) Active confirmed Problem Exacerbation of asthma (488342758) Asthma with acute exacerbation (J45.901) Active confirmed Plan Of Treatment No Information Medications Administered Medication Instructions Date of Administration Dosage Notes Allergy injection 1 11/18/2017 0.3 mL A-6; 0 reaction Allergy injection 1 12/22/2017 0.3 mg A-7 expiration date 05-24-18 No reaction at 15 minutes Allergy injection 1 01/19/2018 0.3 mL Vial B Allergy injection 1 01/19/2018 0.3 mL Vial A Allergy injection 1 05/27/2018 0.3 mL A-3 0 .3 exp date 03-16-19, after 20mins just reddness to site Allergy injection 1 09/05/2018 0.3 mL A-5 l eft upper arm, after 20mins no induration Allergy injection 1 10/03/2018 0.3 mL A6, EXP.03-16-19 GIVEN IN RIGHT UPPER ARM - BNFRN AFTER 20MINS NO REACTION AT SITE BNFRN Allergy injection 1 10/31/2018 0.3 mL Allergy injection 1 11/28/2018 0.3 mL Allergy injection 1 01/16/2019 0.3 Allergy injection 2 06/05/2011 vial A in left upper arm zero reaction vial B in right upper arm zero reaction Allergy injection 2 08/04/2011 no re action mw Allergy injection 2 11/12/2011 A6-- right upper arm B6--left upper arm Allergy injection 2 12/01/2011 Vial A: right upper arm Vial B; left upper arm Allergy injection 2 01/19/2012 Allergy injection 2 01/26/2012 0.3cc given Sub Cu one in each upper arm/ shogonlpn Allergy injection 2 02/26/2014 0.3 A6 Right upper arm B6 Left upper arm Allergy injection 2 03/20/2014 0.3 c c given. A-7 given in right arm. 0.3 cc B-7 given in left arm Allergy injection 2 04/12/2014 0.3 mL A-8 0.3 ml given in right arm B-8 0.3 ml given in left arm Allergy injection 2 05/02/2014 Vial A 0.3 ml given in Right arm vial B 0.3 ml given in left arm Allergy injection 2 05/30/2014 Vial a-1 0.15 cc in right arm vial b-1 0.15 cc in left arm Allergy injection 2 06/27/2014 Vial A-2 0.3 right arm Vial B-2 0.3 ml left arm Allergy injection 2 07/18/2014 0.3 mL Vial A 0.3ml given SC in Left upper outer arm Vial B 0.3ml given SC in Right upper outer arm/shogonlpn Allergy injection 2 09/26/2014 a-5 0.3 cc given in right arm b-5 0.3 cc given in left arm No reaction noted Allergy injection 2 10/17/2014 a-6 0.3 cc in right upper arm b-6 0.3 cc in left upper arm No reaction noted. Allergy injection 2 11/07/2014 a-7 0.3 ml in right arm b-7 0.3 ml in left arm Allergy injection 2 12/05/2014 a-8 0.3 cc in right arm b-8 0.3 cc in left arm no reaction noted in either arm Allergy injection 2 12/26/2014 a-9 0.3 cc in right arm b-9 0.3 cc in left arm Allergy injection 2 01/16/2015 a-1 0.15 cc in right arm b-1 0.15 in left arm Allergy injection 2 02/06/2015 a-2 0.3 cc in right arm b-2 0.3 cc in left arm Allergy injection 2 03/01/2015 a-3 0.3 cc in right arm b-3 0.3 cc in left arm Allergy injection 2 04/03/2015 a-4 0.3 cc in right arm b-4 0.3 cc in left arm Allergy injection 2 05/01/2015 a-5 0.3 cc to right upper arm b-5 0.3 cc to left upper arm Allergy injection 2 05/22/2015 right and left upper arms. Allergy injection 2 06/21/2015 0.30 mL Allergy injection 2 07/16/2015 0.30 mL Allergy injection 2 08/07/2015 a-9 0.3 cc in right arm b-9 0.3 cc in left arm Allergy injection 2 09/03/2015 new box a-1 0.15 cc in right arm b-1 0.15 cc in left arm. Allergy injection 2 10/18/2015 11 da ys overdue for injections. called [facility] and spoke with Johana regarding this. Instructed to give 0.15 ml from vial a-2 (right arm) and b-2 (left arm). Spoke with mother, Arabella, about this. She v/u Allergy injection 2 11/20/2015 a-3 0.3 cc in right arm b-3 0.3 cc in left arm Allergy injection 2 12/18/2015 a-4 0.3 cc in right arm b-4 0.4 cc in left arm Allergy injection 2 01/15/2016 a-5 0.3 cc in right arm b-5 0.3 cc in left arm Allergy injection 2 02/19/2016 a-6 0.3 cc in right arm b-6 0.3 cc in left arm Allergy injection 2 04/15/2016 a-7 0.15 cc in right arm b-7 0.15 cc in left arm decreased dose by 1/2 due to >21 days late for injections Allergy injection 2 05/13/2016 a-8 0.3 cc in right arm b-8 0.3 cc in left arm Allergy injection 2 06/10/2016 a-9 0.3 cc in right arm b-9 0.3 cc in left arm Allergy injection 2 07/08/2016 new box of serum a-1 0.15 cc in right arm b-1 0.15 cc in left arm Allergy injection 2 08/05/2016 a-2 0.3 cc in right arm b-2 0.3 cc in left arm Allergy injection 2 09/02/2016 a-3 0.3 cc to right arm b-3 0.3 cc to left arm Allergy injection 2 10/06/2016 a-4 0.3 cc in right arm b-4 0.3 cc in left arm Allergy injection 2 11/17/2016 a-5 0.3 cc in right arm b-5 0.3 cc in left arm Allergy injection 2 01/04/2017 a-6 0.3 cc in right arm b-6 0.3 cc in left arm Allergy injection 2 03/01/2017 a-7 0.15 cc in right arm b-7 0.15 cc in left arm. dosage decreased due to >21 days over due per Dr. Irizarry Allergy injection 2 03/31/2017 a-8 0.2 cc in right arm b-8 0.2 cc in left arm Allergy injection 2 04/29/2017 a-[address] Irizarry b-[address] Irizarry Allergy injection 2 07/28/2017 19 days overdue a-2 0.2 cc given in right arm b-2 0.2 cc given in left arm Allergy injection 2 08/25/2017 a-3 0.3 cc in right arm b-3 0.3 cc in left arm Allergy injection 2 09/22/2017 A-4 0.3 CC IN RIGHT ARM B-4 0.3 CC IN LEFT ARM Allergy injection 2 10/20/2017 a-5 0.3 cc in right arm b-5 0.3 cc in left arm Allergy injection 2 11/18/2017 0.3 mL B-6; 5 mm reaction Allergy injection 2 12/22/2017 0.3 mL B-7 expiration date 05-24-18 5 cm reaction at 15 minutes Allergy injection 2 02/16/2018 a-9 0.3 cc in right arm b-9 0.3 cc in left arm Allergy injection 2 03/30/2018 new box a-1 0.15 cc in right arm b-1 0.15 cc in left arm Allergy injection 2 04/27/2018 a-2 0.3 cc in rt arm b-2 0.3 cc in lt arm Allergy injection 2 05/27/2018 0.3 mL B-3 0 .3 exp 03-16-19, after 20mins just reddness to site Allergy injection 2 06/29/2018 a-4 0.3 cc in rt arm b-4 0.3 cc in lt arm Allergy injection 2 09/05/2018 0.3 mL B-5 r ight upper arm, after 20mins no induration Allergy injection 2 10/03/2018 0.3 mL B6, EXP. 03-16-19 GIVEN IN LEFT UPPER ARM BNFRN AFTER 20MINS NO REACTION AT SITE BNFRN Allergy injection 2 10/31/2018 0.3 mL Allergy injection 2 11/28/2018 0.3 mL Allergy injection 2 01/16/2019 0.3 Allergy injection 2 02/15/2019 new box A1 0.15 cc in right upper arm B1 0.15 cc in left upper arm Allergy injection 2 03/15/2019 A vial 0.3 cc in kiera B vial 0.3 cc in bakari Allergy injection 2 04/12/2019 a-3 0.3 cc in kiera b-3 0.3 cc in bakari Allergy injection 2 05/11/2019 0.3 mL A-3 0.3ml injected right upper arm B-3 injected left upper arm. patient waited 20 minutes in office after injections with no noted reaction at injection site. Patient denies any sob or itching with injections Allergy injection 2 06/08/2019 0.3 mL A-5 0.3ml injected right upper arm B-5 0.3ml injected left upper arm patient waited 20 minutes in office after injection. Patient had no noted reaction at injection site and tolerated well. Medical (General) History Medical History History ICD Code Seasonal Allergies Last Tetanus: 05/10/2012 09/26/20-pelvic exam neg, no pap, STD te st was neg Surgical History Surgery Date(Month/Year) Repair tear right knee, Dr. Lawson, 6 tooth exposure 02/20/14 T&A (childhoood) Hospitalization History Reason Date(Month/Year) See surgical hx
[2025-04-16] MEDS: ACETAMINOPHEN 500 MG TABLET 1000 MG PO (12:02)
[2025-04-16] MEDS: LACTATED RINGERS 1,000 ML 30 ML IV CONT ×2 (12:05→15:25)
--- NOTE | 2025-04-16 12:07 | WPDHPUPDATE1 ---
History and Physical Update Update Date/Time: 04/16/25 12:07 History and Physical has been reviewed, including an updated exam of the patient. There are NO changes in the patient's condition. Risks, benefits, and alternatives have been discussed and questions answered. Patient agrees to proceed with procedure.
[2025-04-16 12:23] LABS: BEDSIDEPREGUCG Negative (Negative)
--- NOTE | 2025-04-16 13:49 | WPDANESEPPF ---
Anes - Initial Pre Proc Eval Procedure: Operation Date: 04/16/25 13:00 Proposed Procedures p Bilateral Inferior Turbinate Reduction with Outfracture, Excision Right Sided Alethea Bullosa - Raphael Castaneda MD s Endoscopic Septoplasty - Raphael Castaneda MD Date/Time: 04/16/25 13:49 Surgeon: Raphael Castaneda MD Pre Op Diagnosis: Chronic Sinusitis, Ethmoidal Sinusitis, Patient Data Age: 24 Gender: F Height: 1.73 m Weight: 111.3 kg Last Vital Signs Temp 36.2 C L 04/16/25 11:05 Pulse 101 H 04/16/25 11:05 Resp 16 04/16/25 11:05 BP 144/92 H 04/16/25 11:05 Pulse Ox 97 04/16/25 11:05 O2 Del Method Room Air 04/16/25 11:05 Allergies Allergy/AdvReac Type Severity Reaction Status Date / Time cefdinir (From Omnicef) Allergy Severe Hives Verified 04/16/25 11:13 Penicillins Allergy Severe Hives Verified 04/16/25 11:13 Home Medications ?Medication ?Instructions ?Recorded ?Confirmed ?Type albuterol sulfate 90 mcg/actuation 2 inh inhalation Q6H PRN Dyspnea 08/11/23 04/10/25 History aerosol inhaler fluticasone fur. 100 mcg-umeclid 1 inh inhalation DAILY 08/11/23 04/16/25 History 62.5 mcg-vilant 25 mcg inhalat.powder (Trelegy Ellipta) norelgestromin 150 mcg-e.estradiol 1 patch transdermal Q7D #12 ea 05/22/24 04/10/25 Rx 35 mcg/24 hr weekly transderm patch (Xulane) montelukast 10 mg tablet 10 mg PO HS 06/21/24 04/16/25 History cetirizine 10 mg tablet (Zyrtec) 10 mg PO BID 03/21/25 04/16/25 History famotidine 40 mg tablet (Pepcid) 40 mg PO BID 03/21/25 04/16/25 History cholecalciferol (vitamin D3) 125 125 mcg PO DAILY 04/10/25 04/16/25 History mcg (5,000 unit) tablet (Vitamin D3) fluoxetine 20 mg capsule 20 mg PO DAILY 04/10/25 04/16/25 History lisdexamfetamine 20 mg capsule 20 mg PO DAILY 04/10/25 04/16/25 History (Vyvanse) Laboratory Tests 04/16/25 11:15 POC Urine HCG, Qual Negative (Negative) Patient hx anesthesia problems: none Family hx anesthesia problems: none Results Review: All pre-operative results and documents have been reviewed as part of the pre-operative evaluation. [facility] Past Medical History Medical History POTS (postural orthostatic tachycardia syndrome) Depression Anxiety Ovarian cyst Surgical History Surgical History H/O cardiac radiofrequency ablation H/O esophagogastroduodenoscopy H/O gynecological procedure 04/2020 Kyleena insertion History of orthopedic surgery History of tonsillectomy Family History Family History Mother Endometriosis Father Diabetes mellitus Social History Social History Social History: Caffeine-daily Smoking status: Never smoker Alcohol intake: current Substance use: never Substance use type: does not use Do You Feel Safe in your Home?: Yes Lack of Transportation: No Lack of Food: Never True Current Housing: I Have Housing Concerned About Future Housing: No Difficulty Paying Gas/Electric Bills: No Difficulty Paying for Meds: No Currently Unemployed: No Education: High School Diploma/GED Difficulty w/ Childcare or Family Care: No Living arrangements: with family Occupation/Education: student Additional occupation/education comments: [employer] Gender identity (if verbalized by the patient): Female Sexual Orientation (if Verbalized by the Patient): Straight or Heterosexual Spiritual care concerns: No Anes - Eval Final PreProcedure Day of Procedure 04/16/25 13:49 Patient weight: obese Heart: regular rate and rhythm Lungs: clear to auscultation Airway: Mallampati scale class II Neurological: alert and oriented Last oral intake: >/= 8 hours ASA classification: II Emergent: no Anesthetic plan: proceed Anesthesia type and monitoring: general ETT and standard monitoring Results Review: All pre-operative results and documents have been reviewed as part of the pre-operative evaluation. Informed Consent: The patient's anesthetic plan and its attendant risks and benefits were discussed with the patient/family/POA. Questions were solicited and answers provided to the satisfaction of the patient/family/POA.
[2025-04-16] MEDS: CLINDAMYCIN 900 MG/D5W 50 ML 900 MG/50 ML PIGGYBACK 50 MG IVPB (14:09)
[2025-04-16] MEDS: OXYMETAZOLINE HCL 0.05% NAS 15 ML BTL (*BKC) 1 SPRAY NASAL (14:35)
[2025-04-16] MEDS: LIDO 1%/EPINEPHRINE 1:100,000 50 ML VIAL INFILTRATE (14:36)
[2025-04-16] MEDS: LIDO 1%/EPINEPHRINE 1:100,000 20 ML VIAL 50 ML INFILTRATE (15:13)
--- NOTE | 2025-04-16 15:45 | P.OP_ITS ---
Procedure Note - Detailed Date of Procedure 04/16/25 Pre-op Diagnosis rightConcha bullosa turbinate hypertrophy septal deviation nasal obstruction Post-op Diagnosis Same Procedure Performed endoscopic assisted septoplasty, inferior bilateral turbinate reduction with outfracture, right resection shanda bullosa Surgeon Raphael Castaneda MD Anesthesia General Indications see above Findings right shanda bullosa left moderate septal deviation incredible turbinate hy pertrophy Description of Procedure patient identified consent verified the preop holding area. Patient brought to the operating. Time-out performed. General anesthesia induced endotracheal tube secured airway. Patient prepped draped position procedure confirmed, the 2nd time-out was performed. 0 degree endoscope utilized throughout the procedu re total 15 cc 1% lidocaine with 1 100,000 parts epinephrine injected into the bilateral nasal septum inferior turbinates and right middle turbinate right middle turbinates split with a sickle knife and the lateral portion was removed of the shanda with microdebrider 4 mm Mcalister blade straight and straight through cut Lisa. Afrin-soaked pledget was placed against this until the end of the procedure and was removed. Inferior turbinates stab anteriorly with the 15 blade and reduced in the submucosal plane with 2.5 mm Pauly turbinate blade no tears which was awesome they were then outfractured using Granby elevator. Very good reduction septum still had left deviation which is significant given in the nape the narrow nasal airway Eastwood incision made on the left side of the nasal septum left nasal septal flap elevated using 7 Tristanian suction deliberate inferior base tear as releasing tear. The septum was then crossed over anteriorly in the right nasal septal flap was elevated with 7 Tristanian suction. Deviated septum was removed combination Lisa forceps Anam Andrew forceps and osteotome. Septum was then irrigated and the anterior Eastwood incision on the left side was closed with 4 interrupted 5 0 fast gut sutures. Bilateral nasal passages then suctioned out. Right pledget removed which was sitting against the shanda. Moctezuma splints placed and sutured anteriorly using a 3 0 mattress nylon suture. Patient tolerated the procedure very well. Blood loss 25 cc. I performed all dictated portions of the procedure. There were no complications. Care the patient given Anesthesiology. Patient taken to PACU. Estimated Blood Loss 25 Drains No Packing No Pathology None sent Complications No immediate complications Condition Stable Disposition PACU [facility] Billing Surgery - Charge Forward: Surgery Billing
[2025-04-16] MEDS: fentaNYL CITRATE INJ (*CRX) 100 MCG/2 ML VIAL 25 MCG IV PUSH ×4 (15:47→16:18)
[2025-04-16] MEDS: ONDANSETRON INJ 4 MG/2 ML VIAL IV PUSH (15:48)
[2025-04-16] MEDS: diphenhydrAMINE HCl INJ 50 MG/ML VIAL 12.5 MG IV PUSH ×2 (17:49→18:20)
== END 2025-04-16 19:00 | disposition home or self-care (01) ==
PROVIDERS: PCP Nurse Practitioner; Visit Provider Otolaryngology
PROC: (CPT 30520; principal; 2025-04-16 13:00)
PROC: (CPT 30520; 2025-04-16 13:00)
DX: J34.3 Hypertrophy of nasal turbinates (principal); J34.2 Deviated nasal septum; J34.89 Other specified disorders of nose and nasal sinuses; G89.18 Other acute postprocedural pain; F32.A Depression, unspecified; F41.9 Anxiety disorder, unspecified; G90.A Postural orthostatic tachycardia syndrome [POTS]; E66.9 Obesity, unspecified; Z68.37 Body mass index [BMI] 37.0-37.9, adult; Z79.51 Long term (current) use of inhaled steroids; Z79.85 Long-term (current) use of injectable non-insulin antidiabetic drugs; Z98.890 Other specified postprocedural states; Z86.79 Personal history of other diseases of the circulatory system
CPT/HCPCS: 30520; 30140; 31240; A9270; J0330; J1100; J1200; J2004; J2250; J2405; J2704; J3010; J7050; J7120

== ENCOUNTER 2025-10-16 14:01 | Outpatient (CLI) | payer OTHER, SELFPAY ==
--- NOTE | ~2025-10-16 | US_ITS ---
PROCEDURE(S): Incomplete left breast ultrasound INDICATION(S): Intermittent left nipple inversion COMPARISON(S): None. TECHNIQUE: Grayscale and color Doppler imaging. FINDINGS: No cystic or solid masses are seen in the area(s) of concern. IMPRESSION: No significant abnormality is seen sonographically. BI-RADS 1 - Negative. Reviewed, dictated and finalized at location B. TATION ELECTRICIAN SUPERVISOR
== END 2025-10-16 14:02 | disposition home or self-care (01) ==
PROVIDERS: PCP Internal Medicine Endocrinology, Diabetes & Metabolism; Visit Provider Obstetrics & Gynecology
DX: N64.59 Other signs and symptoms in breast (principal)
CPT/HCPCS: 76641

== ENCOUNTER 2025-10-16 14:03 | Outpatient (CLI) | payer OTHER, SELFPAY ==
--- NOTE | ~2025-10-16 | US_ITS ---
US right upper quadrant INDICATION: Fatty liver PROCEDURE: Realtime right upper abdominal ultrasound. COMPARISON: No prior studies for comparison. FINDINGS: The pancreas is normal without focal mass or pancreatic ductal dilation. Liver echotexture is normal without focal mass or intrahepatic biliary dilatation. There is normal directional flow in the portal vein. The gallbladder is normal without stones, gallbladder wall thickening or pericholecystic fluid. Common bile duct measures 3 mm. No sonographic Shipman's sign. IMPRESSION: 1: Normal limited abdominal ultrasound. Reviewed, dictated and finalized at location I. RMARY ATTENDANT
== END 2025-10-16 14:04 | disposition home or self-care (01) ==
LOC: MICIMG 14:03
PROVIDERS: PCP Obstetrics & Gynecology; Visit Provider Internal Medicine Endocrinology, Diabetes & Metabolism
DX: K76.0 Fatty (change of) liver, not elsewhere classified (principal)
CPT/HCPCS: 76705

== ENCOUNTER 2025-10-22 01:15 | Day surgery (SDC) | payer OTHER, SELFPAY ==
--- OUTSIDE RECORDS SUMMARY | 2025-10-15 11:30 | XMS_ITS ---
Author Organization [facility] ([address]) Address [address] [place] [address] Care Team Providers Care Business Partner Name Role Phone Sosa Wells Primary Care Provider UnavailAnitra Block Unavailable [phone] Presley Cuevas Unavailable [phone] REASON FOR VISIT SCIT - Traditional Schedule Allergy Immunotherapy (Week ) Social History Sex Assigned At : Social History Observation Description Sex Assigned At Female Encounters Encounter Location Date Provider Diagnosis [facility] [address] [place] [address] 10/15/2025 Presley Cuevas Allergic rhinitis du e to pollen J30.1 ; Other allergic rhinitis J30.89 ; Allergic rhinitis due to animal (cat) (dog) hair and dander J30.81 and Other chronic allergic conjunctivitis H10.45 Assessments Encounter Date Diagnosis (ICD Code) Assessment Notes Treatment Notes Treatment Clinical Notes Section Notes 10/15/2025 Allergic rhinitis due to pollen (ICD-10 - J30.1) 10/15/2025 Other allergic rhinitis (ICD-10 - J30.89) 10/15/2025 Allergic rhinitis due to animal (cat) (dog) hair and dander (ICD-10 - J30.81) 10/15/2025 Other chronic allergic conjunctivitis (ICD-10 - H10.45) Plan Of Treatment Next Appt Details Follow Up: As scheduled, Nehal son: Provider Name:Anitra paul, 11/19/2025 03:00:00 PM, [address] [facility], [address], [place], [address], Progress Notes * Jill VARELADOB:1999 (25 yo F)Acc No.[id number]:10/15/2025 SCIT-Aeroallergen Patient: Jill CHAUHAN Provider: Gonzalo Cuevas MD :2000 A ge:25 Y S ex:Female Date:10/15/2025 Address:[facility] [address], [address] [place], [place] [id number] Pcp:Sosa Wells Subjective: * Chief Complaints: * 1 . SCIT - Traditional Schedule Allergy Immunotherapy (Week ). * HPI: * Introduction: The patient is here for scheduled immunotherapy. Please see the attached specialty form regarding the specifics of the administration of these vaccines. As per our protocol, they must undergo a screening health questionnaire (medication changes, reaction(s) to last immunotherapy dose(s), current health status, ACT (if appropriate), self-injectable epinephrine on patient(?) and peak flow (if appropriate)). Also, the patient must wait in our office for 30 minutes after receiving the vaccine(s). Furthermore, every patient must have an epinephrine pen (self-injectable) with them at the time of administration--and carry if for the following 1.5 hours after they leave our office. The patient must also have taken their antihistamine the day of the injection, preferably 2 hours prior. The consent form for SCIT (subcutaneous immunotherapy) is on file. * Medical History: Objective: * Vitals: Assessment: * Assessment: 1. A llergic rhinitis due to pollen - J30.1 (Primary) 2 . O ther allergic rhinitis - J30.89 3 . A llergic rhinitis due to animal (cat) (dog) hair and dander - J30.81 4 . O ther chronic allergic conjunctivitis - H10.45 Plan: * Treatment: * Preventive Medicine: Counseling: E xercise A void heavy lifting on days of allergy immunotherapy. M edication instruction: I njectable epinephrine education and instruction w/ discussion of signs and symptoms of anaphylaxis and reasons to seek urgent or emergent care, Watch for side effects of prescribed medications. E ducation: A ble to return demonstration of self-injectable epinephrine. * Follow Up: A s scheduled * Billing Information: * Visit Code: * Procedure Codes: 81163 IMMUNOTHERAPY INJECTIONS. * Electronic signature of Terry Cuevas MD, FAAAAI on 10/22/2025 at 01:18 AM COGNOS BI DEVELOPER Sign off status: Pending * Provider: Gonzalo Cuevas MD Date: 12/16/2024 Generated for Timothy vera/Dafne/Anitaitting on: 12/23/2024 01:18 AM COGNOS BI DEVELOPER History and Physical Notes * HPI (History of Present Illness) Category Sub-Category Detail Notes Category Not es *Introduction The patient is here for scheduled immunotherapy. Please see the attached specialty form regarding the specifics of the administration of these vaccines. As per our protocol, they must undergo a screening health questionnaire (medication changes, reaction(s) to last immunotherapy dose(s), current health status, ACT (if appropriate), self-injectable epinephrine on patient(?) and peak flow (if appropriate)). Also, the patient must wait in our office for 30 minutes after receiving the vaccine(s). Furthermore, every patient must have an epinephrine pen (self-injectable) with them at the time of administration--and carry if for the following 1.5 hours after they leave our office. The patient must also have taken their antihistamine the day of the injection, preferably 2 hours prior. The consent form for SCIT (subcutaneous immunotherapy) is on file.
[2025-10-17 09:16] VITALS: BMI 30.9
--- NOTE | 2025-10-17 09:35 | PC.NURSE ---
[facility] has started construction of its new state of the art ER which will open Spring 2026. With this, we anticipate parking may be a challenge for some our surgical patients and families. Parking spaces are limited but are available for all Surgical, obstetrics, and ER patients sharing this lot. If you arrive and find you are having a hard time finding a parking space, please note that we understand the challenges, please drive around the hospital and park near Hospital Entrance 1. When you enter this entrance, you can ask a volunteer to direct or take you back to the surgical waiting area to check in. We appreciate everyone?s understanding of these expected challenges while we build for your future. Report to the Outpatient Waiting Room, entrance under the green pavilion located off [address], at time 0900 on date 10/22/2025. Planned Procedure Time: 1100.? Time changes happen often and if your time is changed the preop area will call you the afternoon before. - You and your visitor will be asked to self-screen and do not enter if you have any COVID symptoms. Please call surgeon if you need to reschedule. - A mask is optional within the hospital at this time. Patients may have clear liquids (water, carbonated beverages, clear teas, apple juice) until 3 hours prior to surgery with a maximum of 20 ounces. - No food from midnight until time of surgery and no smoking, or chewing tobacco (or any form of nicotine). No chewing gum, candy or mints. Take only the following medications with a SIP of water on the morning of surgery: Fluoxetine, Nasal spray, Inhaler DO NOT STOP ANY OF YOUR OTHER PRESCRIPTION MEDICATIONS PRIOR TO SURGERY EXCEPT THE FOLLOWING Hold all vitamins and supplements for 3 days per anesthesiologist. Medications to discontinue per physician- Trizepitide last dose 10/15/2025 Date to take last dose: Vit's- 10/19/25 Please no make-up, nail slovenian, hairspray, perfume, deodorant, or body powder the day of surgery.? No jewelry (including any body piercings) or valuables the day of surgery, leave them at home.? Please take a shower or bath the night before, or the morning of, surgery with an antibacterial soap.? Wear comfortable, loose fitting clothing.? - Jewelry must be removed prior to entering the operating room.? Rings and piercings that are not removed may be cut off. - The hospital will not accept responsibility for valuables.? - Please leave all valuables, including medications, at home the day of surgery. If you are going home after surgery, a licensed city route driver must drive you home.? - NO public transportation without another adult if you receive anesthesia. - We recommend that an adult stay with you for 24 hours following discharge. - We also recommend that you do not drive, make important decision, drink alcoholic beverages, or take any drugs that were not prescribed by your health care provider for at least 24 hours after your discharge time. Follow any additional instructions given to you from your surgeon. Telephone instructions given to patient and asked if any additional questions and then verbalized understanding. Patient advised to call surgeon office or pre surgery nurse liaison [phone] if any additional questions.
--- NOTE | 2025-10-20 15:43 | PM.IMHP2 ---
H&P: HPI History of Present Illness Date/Time: 10/20/25 15:43 Chief Complaint: Vasomotor rhinitis rhinorrhea postnasal drip Narrative: planned surgical procedure Review of Systems Review of Systems: All systems reviewed & are unremarkable except as noted in HPI and below PMFSH Past Medical History Medical History POTS (postural orthostatic tachycardia syndrome) Depression Anxiety Ovarian cyst Surgical History Surgical History H/O cardiac radiofrequency ablation H/O esophagogastroduodenoscopy H/O gynecological procedure 04/2020 Kyleena insertion History of orthopedic surgery History of tonsillectomy Family History Family History Mother Endometriosis Father Diabetes mellitus Social History Social History Social History: Caffeine-daily Smoking status: Never smoker Alcohol intake: current Alcohol use details: rare- social occasions Substance use: never Substance use type: does not use Lack of Transportation: No Lack of Food: Never True Current Housing: I Have Housing Concerned About Future Housing: No Difficulty Paying Gas/Electric Bills: No Difficulty Paying for Meds: No Currently Unemployed: No Education: High School Diploma/GED Difficulty w/ Childcare or Family Care: No Living arrangements: alone Occupation/Education: occupation Gender identity (if verbalized by the patient): Female Sexual Orientation (if Verbalized by the Patient): Straight or Heterosexual Spiritual care concerns: No Meds Home Medications and Allergies Home Medications ?Medication ?Instructions ?Recorded ?Confirmed ?Type albuterol sulfate 90 mcg/actuation 2 inh inhalation Q6H PRN Dyspnea 08/11/23 10/17/25 History aerosol inhaler fluticasone fur. 100 mcg-umeclid 1 inh inhalation DAILY 08/11/23 10/17/25 History 62.5 mcg-vilant 25 mcg inhalat.powder (Trelegy Ellipta) montelukast 10 mg tablet 10 mg PO HS 06/21/24 10/17/25 History cetirizine 10 mg tablet (Zyrtec) 10 mg PO BID 03/21/25 10/17/25 History famotidine 40 mg tablet (Pepcid) 40 mg PO BID 03/21/25 10/17/25 History cholecalciferol (vitamin D3) 125 125 mcg PO DAILY 04/10/25 10/17/25 History mcg (5,000 unit) tablet (Vitamin D3) fluoxetine 20 mg capsule 40 mg PO DAILY 04/10/25 10/17/25 History lisdexamfetamine 20 mg capsule See Rx Instructions PO DAILY 04/10/25 10/17/25 History (Vyvanse) ipratropium bromide 21 mcg (0.03 2 spray intranasal .qd-tid #30 mL 07/25/25 10/17/25 Rx %) nasal spray guanfacine 2 mg tablet,extended 2 mg PO QPM 10/17/25 10/17/25 History release 24 hr tirzepatide 2.5 mg/0.5 mL 2.5 mg subcut WEEKLY 10/17/25 10/17/25 History subcutaneous pen injector (Mounjaro) Allergies Allergy/AdvReac Type Severity Reaction Status Date / Time cefdinir (From Omnicef) Allergy Severe Hives Verified 10/17/25 09:12 Penicillins Allergy Severe Hives Verified 10/17/25 09:12 Exam Narrative: vasomotor type appearance excess mucus rhinorrhea postnasal drainage well Assessment and Plan Assessment and plan (1) Rhinitis: Code(s): J31.0 - Chronic rhinitis Status: Acute Assessment and Plan: plan OR bilateral nasal endoscopy and bilateral cryoablation of the posterior nasal nerves with clear FX. Total operative time about 30 minutes. LMA okay. Risks were discussed bleeding infection TMs are structures CSF leak brain or damage change in vision total blindness need further procedures failure to resolve symptoms. Especially if not due to vasomotor symptoms for the posterior nasal nerves. Change in taste change in swallow damage to any structure the clavicles by myself tension and structure the adduction remains of anesthesia persistent headache worsening of headaches. Need further procedures. Patient voiced understanding of these risks and agreed. (2) Rhinorrhea: Code(s): J34.89 - Other specified disorders of nose and nasal sinuses Status: Acute (3) PND (post-nasal drip): Code(s): R09.82 - Postnasal drip Status: Acute
[2025-10-22] VITALS (11 sets, daily range): BP systolic 119–131; BP diastolic 64–95; PULSE 63–94; RESP 11–19; TEMP 36.3–36.4; O2SAT 95–100
--- OUTSIDE RECORDS SUMMARY | 2025-10-22 01:17 | XMS_ITS | Clinical Summary ---
Author Organization [facility] Address [address] [place] [id number] Care Team Providers Care Bounty Hunter Name Role Phone Shannon Jhaveri BATCH MIXER Primary Care Provider [phone] Allergies Active Allergy Reactions Criticality Noted Date Comments Doxycycline Itching,Other (see comment) 04/16/2025 Human Papillomavirus 4-Bárbara t Recombinant Vaccine Syncope 05/14/2025 Cefdinir Hives 09/23/2020 Penicillins Hives 09/23/2020 Medications azelastine (ASTELIN) 0.1 % nasal spray 2 sprays by Nasal route 2 (two) times daily. Active albuterol sulfate HFA 108 (90 Base) MCG/ACT inhaler INHALE 2 PUFFS BY MOUTH EVERY 6 HOURS Active aspirin EC 81 MG tablet Take 1 tablet (81 mg total) by mouth daily. 06/12/2024 Active cetirizine (ZYRTEC) 10 MG tablet Take 1 tablet (10 mg total) by mouth 2 (two) times daily. Active vitamin D3 (VITAMIN D) 25 mcg tablet Take 2 tablets (50 mcg total) by mouth daily. Active EPINEPHrine 0.3 MG/0.3ML injection Inject 0.3 mLs (0.3 mg total) into the muscle as needed. Active famotidine (PEPCID) 20 MG tablet Take 1 tablet (20 mg total) by mouth 2 (two) times daily. Active TRELEGY ELLIPTA 200-62.5-25 MCG/ACT AEROSOL POWDER, BREATH ACTIVATED Inhalation; Duration: 30 Days Active montelukast (SINGULAIR) 10 MG tablet Take 1 tablet (10 mg total) by mouth daily. Active XULANE 150-35 MCG/24HR packet Place 1 patch onto the skin once a week. Active FLUoxetine (PROZAC) 40 MG capsule Take 1 capsule (40 mg total) by mouth daily. Active lisdexamfetamine (VYVANSE) 60 mg capsuleIndicatio ns:Class 2 obesity without serious comorbidity with body mass index (BMI) of 35.0 to 35.9 in adult, unspecified obesity type,Moderate binge-eating disorder Take 1 capsule (60 mg total) by mouth every morning. 07/06/2025 Active vitamin B-12 (CYANOCOBALAMIN) (CYANOCOBALAMIN) 1000 mcg tablet Take 1 tablet (1,000 mcg total) by mouth daily. 07/06/2025 Active vitamin D3 (CHOLECALCIFEROL ) 25 mcg tablet Take by mouth daily. 07/06/2025 Active Biotin 5000 MCG Cap 07/06/2025 Active guanFACINE ER (INTUNIV) 1 MG 24 hr tablet 08/23/2025 Active Active Problems Problem Noted Date Diagnosed Date H/O right knee surgery 08/24/2025 Chronic pain of right knee 08/24/2025 Arthralgia, unspecified joint 07/06/2025 Chronic reflux esophagitis 06/07/2025 Social anxiety disorder 05/14/2025 Class 2 obesity without seri ous comorbidity with body mass index (BMI) of 35.0 to 35.9 in adult, unspecified obesity type 05/14/2025 Binge eating disorder 03/29/2025 PCOS (polycystic ovarian syndrome) 02/09/2024 Postural orthostatic tachycardia syndrome 2022 SVT (supraventricular tachycardia) 07/23/2023 Asthma 05/27/2023 Fatigue 05/27/2023 Vitamin D deficiency 05/27/2023 Tear of medial meniscus of right knee 09/09/2016 Resolved Problems Problem Noted Date Diagnosed Date Resolved Date Hyperlipidemia 07/30/2023 05/14/2025 Encounters Date Type Department Care Team Description 09/18/2025 Telephone [facility] - [address] [place] [address] Shannon Jhaveri, BATCH MIXER Record Request 08/30/2025 Telephone [facility] - [place] [address] [place] [address] Shannon Jhaveri, EUGENIA Information; Returned Call 08/24/2025 3:00 PM CDT Office Visit [facility] Mult[facility] Care - [place] [address] [place] [address] Shannon Jhaveri, EUGENIA Follow Up; Eating Disorder (Binge ); Fatigue (Wants to update pcp about endocrin appointment ) 08/24/2025 Travel from Last 3 Months Immunizations Immunization Administration Dates Next Due Dtap (Acel-Immune) 08/09/2006, 1,01/06/2001,2000,09/16 HPV4 (Gardasil) 08/22/2009 Hib-Hepatitis B (Comvax) 10/19/2001,2000,1 12/04/1999 MMR (MMRII) 07/27/2001 Meningococcal (Menactra) 06/09/2017 Pneumococcal (Pneumovax 23) 03/16/2024 Polio IPV (Ipol) 08/09/2006,07/27/2001, 1,2000 Tdap (Generic) 03/16/2024,05/10/2012 Varicella (Varivax) 04/12/2015 Varicella/MMR (Proquad) 08/09/2006 Family History Medical History Relation Comments Diabetes Father Hypertension Father Migraines Father Breast Cancer Maternal Aunt negative genetic testing Throat cancer Maternal Grandfather Depression Maternal Grandmother Kidney Disease Maternal Grandmother Mental Health Maternal Grandmother Depression Mother Mental Health Mother ADHD, anorexia, and Anxiety Miscarriages / Stillbirths Mother one m iscarriage due to endometriosis, after miscarriage had full hysterectomy due to precancerous tissue Atrial fibrillation Paternal Grandfather Supraventricular tachycardia Paternal Grandfathe r Heart Disease Paternal Grandmother Relation Status Comments Father Alive Maternal Aunt Maternal Grandfather Maternal Grandmother Alive Mother Alive Paternal Grandfather Paternal Grandmother Social History Tobacco Use Types Packs/Day Years Used Date Smoking Tobacco: Never Smokeless Tobacco: Never Tobacco Cessation:Counseling Given: Not Answered Alcohol Use Standard Drinks/Week Comments Not Currently 0 (1 standard drink = 0.6 oz pur e alcohol) PHQ-2 Answer Date Recorded Patient Health Questionnaire-2 Score 0 07/06/2025 Hunger Vital Sign Answer Date Recorded Within the past 12 months, y ou worried that your food would run out before you got the money to buy more. Never true 05/24/20 25 Within the past 12 months, t he food you bought just didn't last and you didn't have money to get more. Never true 05/24/2025 PRAPARE - Transportation Answer Date Re corded In the past 12 months, has l ack of transportation kept you from medical appointments or from getting medications? No 05/15 In the past 12 months, has l ack of transportation kept you from meetings, work, or from getting things needed for daily living? No 05/24/2025 Comments No Sex and Gender Information Value Date Recorded Sex Assigned at Female 05/17/2025 2:02 PM CDT Legal Sex Female 10:59 PM SAND SYSTEM OPERATOR Gender Identity Female 05/17/2025 2:02 PM CDT Sexual Orientation Not on file Last Filed Vital Signs Vital Sign Reading Time Taken Comments Blood Pressure 110/75 08/24/2025 3:06 PM CDT Pulse 98 08/24/2025 3:06 PM CDT Temperature 35.6 C (96 F) 08/24/2025 3:06 PM CDT Respiratory Rate 14 08/24/2025 3:06 PM CDT Oxygen Saturation 98% 08/24/2025 3:06 PM CDT Inhaled Oxygen Concentration - - Weight 97.5 kg (215 lb) 08/24/2025 3:06 PM CDT Height 172.7 cm (5' 8) 08/24/2025 3:06 PM CDT Body Mass Index 32.69 08/24/2025 3:06 PM CDT Plan of Treatment Upcoming Encounters Date Type Department Care Team (Late st Contact Info) Description 10/31/2025 3:00 PM SAND SYSTEM OPERATOR Office Visit [facility] Multispecialty Care - [place] [address] [place] [address] Shannon Jhaveri, EUGENIA [address] [place] [address] Health Maintenance Due Date Last Done Comments Annual Physical 2003 HPV Vaccines (2 - 2-dose series) 02/20/2010 08/22/2009 Pneumococcal Vaccine: Pediatrics (0 to 5 Years) and At-Risk Patients (6 to 49 Years) (2 of 2 - PCV) 03/16/2025 03/16/2024 COVID-19 Vaccine (1 - season) 2025 Cervical Cancer Screening Pap Smear (Age 21 to 29) Every 3 Years 04/15/2026 04/15/2023 Cervical Cancer Screening 04/15/2026 Influenza Adult (#1) 2026 Postpon ed from 08/15/2025 (Patient Refused) DTaP, Tdap and Td Vaccines (8 - Td or Tdap) 03/16/2034 03/16/2024, 05/10/2012, 08/09/2006, Additional history exists Hepatitis B Vaccines Completed 10/19/2001, 2000, 2000 Meningococcal Vaccine Completed 06/09/2017 Hepatitis C Completed 05/21/2025 PHQ-2 (Physician [place]) Completed 07/06/2025 Hepatitis A Vaccines Aged Out No long er eligible based on patient's age to complete this topic Meningococcal B Vaccine Aged Out No l onger eligible based on patient's age to complete this topic RSV Immunizations Under 20 Months Aged Out No longer eligible based on patient's age to complete this topic Procedures Procedure Name Priority Date/Time Associated Diagnosis Comments HEPATITIS C ANTIBODY W/RFX TO HCV RNA Routine 05/21/2025 4:10 PM CDT Need for hepatitis C screening test OUTSIDE CYTOPATH CERV/VAG INTERPRET (PAP) 04/15/2023 from Last 3 Months or Most Recently Relevant to Health Maintenance Results * HEPATITIS C ANTIBODY W/RFX TO HCV RNA (05/21/2025 4:10 PM CDT) HEPATITIS C AB Non Reactive Non Reacti [facility] 1 INTERPRETATION Comment [facility] 1 Comment: Not infected with HCV unless early or acute infection is suspected (which may be delayed in an immunocompromised individual), or other evidence exists to indicate HCV infection. 05/21/2025 4:10 PM CDT 05/21/2025 Narrative [facility] - 05/22/2025 9:10 AM CDT Performed at: [facility] [address] [id number] Supervisor Bleach Plant: Javier Castillo PhD, Phone: [phone] us Shannon Jhaveri NP LABORATORY Final Resul t [facility] [address] [place] [address] [facility] 1 * PAP SMEAR WITH HPV (04/15/2023) 04/15/2023 [facility] Scanned SCANNING Final Resu lt from Last 3 Months or Most Recently Relevant to Health Maintenance Insurance Consumer Agent Portal (CAP) OPEN ACCESS [facility] Care Teams Bounty Hunter Relationship Specialty Start Date End Date Shannon Jhaveri NP [address] [place] [address] PCP - General NURSE PRACTITIONER 05/14/25
--- OUTSIDE RECORDS SUMMARY | 2025-10-22 01:17 | XMS_ITS | Clinical Summary ---
Author Organization [facility] Address [address] [address] Phone Care Team Providers Care Woodworking Machine Operator Name Role Phone Becky Carroll MD Primary Care Provider [phone] Kristina Rivera MD Unavailable [phone] Allergies Active Allergy Reactions Criticality Noted Date Comments Amoxicillin-Pot Clavulanate 05/14/20 04 Social History Tobacco Use Types Packs/Day Years Used Date Smoking Tobacco: Never Assessed Comments Unknown Sex and Gender Information Value Date Recorded Sex Assigned at Not on file Legal Sex Female 3:10 AM PARTS SALESMAN Gender Identity Not on file Sexual Orientation Not on file Plan of Treatment Health Maintenance Due Date Last Done Comments Hepatitis C Virus (HCV) Screening 2000 Human Papillomavirus (HPV) Immunization (2 - 2-dose series) 02/20/2010 08/22/2009 Influenza Immunization (#1) 2025 SARS-COV-2 Immunization ( season) 2025 Respiratory Syncytial Virus (RSV) Immunization (Adult) (1 [...] this topic Insurance [employer] Care Teams Woodworking Machine Operator Relationship Specialty Start Date End Date Becky Carroll MD [address] [address] PCP - General Pediatrics 10/01/15 Kristina Rivera MD [address] [place] [address] Otolaryngology 10/01/15
--- OUTSIDE RECORDS SUMMARY | 2025-10-22 01:18 | XMS_ITS | Clinical Summary ---
Author Organization [facility] Address [address] [place] [address] Care Team Providers Care Sole Stainer Name Role Phone Shannon Jhaveri NP Primary Care Provider [phone] Allergies Active Allergy Reactions Criticality Noted Date Comments Cefdinir Hives Medium 01/29/2021 Penicillins Hives Medium 01/29/2021 Medications albuterol HFA (PROVENTIL HFA,VENTOLIN HFA,PROAIR HFA) 90 mcg/actuation inhaler Inhale 2 puffs every 6 (six) hours as needed 3 Active cetirizine (ZyrTEC) 10 mg tablet [...] 1 PEN IN THE MUSCLE ONCE Active FLUoxetine (PROzac) 40 mg capsule Take 1 capsule (40 mg total) by mouth daily Active famotidine (PEPCID) 20 mg tablet Take 1 tablet (20 mg total) by mouth 2 (two) times a day Active Active Problems Problem Noted Date Diagnosed Date Tachycardia 06/12/2024 Tachycardia, unspecified 05/11/2024 Polycystic ovary syndrome 02/09/2024 POTS (postural orthostatic tachycardia syndrome) 10/15/2023 Intermittent dysphagia 07/30/2023 Hyperlipidemia 07/30/2023 SVT (supraventricular tachycardia) 07/23/2023 Mixed anxiety and depressive disorder 05/27/2023 Fatigue 05/27/2023 Asthma 05/27/2023 Sleep apnea 05/27/2023 Unable to concentrate 05/27/2023 Vitamin D deficiency 05/27/2023 Encounters Date Type Department Care Team Description 08/06/2025 3:00 PM CDT Office Visit [facility] [address] [place] [address] Alanna Escobar NP SVT (supraventricular tachycardia) (Primary Dx); POTS (postural orthostatic tachycardia syndrome); Other fatigue; Lipid screening from Last 3 Months Surgical History Surgery Date Site/Laterality Comments KNEE SURGERY 11/15/2015 - 11/14/2016 Right meniscus TONSILLECTOMY/ADENOIDECTOMY 11/15/2003 - 11/14/2004 WISDOM TOOTH EXTRACTION 11/15/2021 - 11/14/2022 EXPOSURE OF IMPACTED TOOTH 2013 ESOPHAGEAL DILATION 08/15/2023 - 09/14/2023 KNEE ARTHROSCOPY W/ LATERAL RELEASE Medical History Medical History Date Comments Asthma Seasonal allergies Anxiety Ovarian cyst bilateral cysts PONV (postoperative nausea and vomiting) Tachycardia POTS (postural orthostatic tachycardia syndrome) GERD (gastroesophageal reflux disease) Kidney stone Depression Motion sickness Arrhythmia Family History Medical History Relation Name Comments Diabetes Father deep alcocer Hyperlipidemia Father deep alcocer Hypertension Father deep alcocer Migraines Father deep alcocre Depression Mother eliot leming Endometriosis Mother eliot leming Heart disease Paternal Grandfather unknown Heart attack Paternal Grandmother mitchell cho Relation Name Status Comments Father deep alcocer Alive Mother eliot leming Alive Paternal Grandfather unknown Alive Paternal Grandmother mitchell cho Alive Social History Tobacco Use Types Packs/Day [...] Sign Reading Time Taken Comments Blood Pressure 110/64 08/06/2025 3:16 PM CDT Pulse 96 08/06/2025 3:16 PM CDT Temperature 36.1 C (97 F) 06/12/2024 10:05 AM CDT Respiratory Rate 16 07/11/2024 10:14 AM CDT Oxygen Saturation 99% 08/06/2025 3:16 PM CDT Inhaled Oxygen Concentration - - Weight 98.9 kg (218 lb) 08/06/2025 3:16 PM CDT Height 172.7 cm (5' 8) 08/06/2025 3:16 PM CDT Body Mass Index 33.15 08/06/2025 3:16 PM CDT Plan of Treatment Health Maintenance Due Date Last Done Comments Cervical Cancer Screening 2000 Depression Screening 2000 Hepatitis C Screening 2000 HPV Vaccines (2 - 2-dose series) 02/20/2010 08/22/20 09 Regular Well Visit/Exam 18-64 2018 Pneumococcal vaccine <65 (2 of 2 - PCV) 03/16/2025 03/16/2024 Influenza Vaccine (#1) 2025 DTaP/Tdap/Td Vaccine (8 - Td or Tdap) 03/16/2034 03/16/2024, 05/10/2012, 08/09/2006, Additional history exists Hepatitis B Screening Completed 10/19/2001 , 2000, 2000 Varicella Vaccines Completed 04/12/2015, 08/09/2006 Medical Devices Implanted Type Area Plasma Processing Centrifuge Operator Device Identifier Shelf Expiration Date Model / Serial / Lot [employer] Vascade Mvp 6-12fr Venous Closure [id number] - [id number] Implanted:Qty: 1 on 06/12/2024 by Harsha Garrison MD at [facility] 02/01/2026 [id number] / / [id number] [facility] Medical [facility] Device Vascular Closure Femoral Artery Bioabsorbable Dual Method Vascade 6-7fr Collagen [id number] - [id number] Implanted:Qty: 1 on 06/12/2024 by Harsha Garrison MD at [facility] 02/15/2026 [id number] / / [id number] [facility] Device Closure Vascade Od5 Fr Femoral Artery [id number] - [id number] Implanted:Qty: 1 on 06/12/2024 by Harsha Garrison MD at [facility] 02/02/2026 [id number] / / [id number] Procedures Procedure Name Priority Date/Time Associated Diagnosis Comments POCT LIPID PANEL Routine 08/06/2025 3:07 PM CDT Lipid screening from Last 3 Months Results * (ABNORMAL) POCT lipid panel (08/06/2025 3:07 PM CDT) Cholesterol, POC 199 <200 MG/DL HDL, POC 26(A) >=40 mg/dL Triglycerides, POC 368(A) <=149 mg/dL LDL Cholesterol POC 99 <=129 mg/dL Chol/HDL Ratio, POC 3.8 NONE Non-HDL Cholesterol, POC 173 NONE mg/dL Cholesterol Total, POC 199 30 - 199 mg/dL Capillary blood 08/06/2025 3 :07 PM CDT Alanna Escobar NP POINT OF CARE TEST ORDERA BLES Final Result from Last 3 Months Insurance [facility] [id number] [facility] [id number] Care Teams Sole Stainer Relationship Specialty Start Date End Date Shannon Jhaveri NP [address] [place], [place] [id number] PCP - General Internal Medicine 08/06/25
--- OUTSIDE RECORDS SUMMARY | 2025-10-22 01:18 | XMS_ITS | Patient Health Record ---
Author Organization [facility] [employer] [place] ([address]) Address [address] [place] [address] Care Team Providers Care Quiller Tender Name Role Phone Sosa Wells Primary Care Provider Anitra Altamirano Unavailable [phone] Presley Cuevas Unavailable [phone] Allergies Allergen (clinical drug ingredient) Drug/Non Drug Allergy documented on EMR Reaction Allergy Type Onset Date Status Substance with penicillin structure and antibacterial mechanism of action (substance) CILLIN (uncoded) hives Allergy Ac tive Penicillin Unknown Drug Allergy Active Results Component Value Reference Range Notes Spirometry Reviewed date:07/17/2025 05:33:32 PM Interpretation:Normal Performing Lab: Notes/Report: Normal SpiroPreBronchodilator_FVC 4.01 SpiroPostBronchodilator_FEF25_75 0 SpiroPreBronchodilator_FEF25_75 3.57 SpiroPreBronchodilator_FEV1 3.28 SpiroPrecentPredictionPost_FEF25_75 0 SpiroPrecentPredictionPost_FEV1 0 SpiroPrecentPredictionPost_FEV1_OVER_FVC 0 SpiroPrecentPredictionPost_FVC 0 SpiroPrecentPredictionPre_FEF25_75 84.2 SpiroPrecentPredictionPre_FEV1 88.2 SpiroPrecentPredictionPre_FEV1_OVER_FVC 95.5 SpiroPrecentPredictionPre_FVC 91.8 SpiroPredicted_FEF25_75 4.24 SpiroPreBronchodilator_FEV1_OVER_FVC 81.75 SpiroPreBronchodilator_PEF 5.92 SpiroPostBronchodilator_FVC 0 SpiroPostBronchodilator_FEV1 0 SpiroPostBronchodilator_FEV1_OVER_FVC 0 SpiroPostBronchodilator_PEF 0 SpiroPredicted_FVC 4.37 SpiroPredicted_FEV1 3.72 SpiroPredicted_FEV1_OVER_FVC 85.64 SpiroPredicted_PEF 7.13 Reason For Referral No Information Medications Medication SIG (Take, Route, Frequency, Duration) Notes Start Date End Date Status EPIPEN 2-RIVER 0.3 mg as directed intramuscularly once; Duration: 30 days Active EpiPen 2-River 0.3 mg as directed intramuscularly once; Duration: 30 days Active Vitamin D Active CETIRIZINE 10 mg 1 tab(s) orally once a day; Duration: 30 days Active Xulane 150-35 MCG/24HR as directed Transdermal Active Montelukast Sodium 10 MG 1 tab(s) orally 60 minutes prior to SCIT; Duration: 30 days Active Sertraline HCl 100 MG 1 tab(s) orally once a day; Duration: 30 day(s) Active Fluticasone Propionate 50 MCG/ACT 2 spray(s) in each nostril twice a day; Duration: 30 days Not-Taking Pantoprazole Sodium 40 MG 1 tab(s) orally once a day; Duration: 30 day(s) Not-Taking Trelegy Ellipta 200-62.5-25 MCG/ACT 1 puff Inhalation Once a day; Duration: 90 days Active Cetirizine HCl 10 MG 1 tablet Orally Twice a day; Duration: 30 days Active Famotidine 20 MG 1 tablet Orally Twice a day; Duration: 30 days Active Ipratropium Connell 0.06 % 2 sprays in each nostril Nasally Twice a day; Duration: 30 days Active Xhance 93 MCG/ACT 2 sprays (1 spray in each nostril) Nasally Twice a day; Duration: 30 days Active Cetirizine HCl 10 MG TAKE 1 TABLET BY MOUTH TWICE DAILY; Duration: 30 Active Famotidine 20 MG TAKE 1 TABLET BY MOUTH TWICE DAILY; Duration: 90 Active Famotidine 40 mg 1 tab(s) orally 60 mins prior to SCIT; Duration: 30 days Not-Taking AZELASTINE NASAL 137 mcg/inh 2 spray(s) intranasally 2 times a day; Duration: 30 days Not-Taking Azelastine HCl 137 MCG/SPRAY 2 spray(s) intranasally 2 times a day; Duration: 90 days Not-Taking Wellbutrin SR 150 MG 1 tab(s) orally 2 times a day; Duration: 30 day(s) Not-Taking ALBUTEROL (EQV-PROAIR HFA) 90 MCG/INH 2 PUFF(S) INHALED EVERY 6 HOURS *Please review for potential replacement for e-prescription and drug interaction check* Not-Taking Azelastine HCl 137 MCG/SPRAY 2 spray(s) intranasally 2 times a day; Duration: 30 days Not-Taking Metoprolol Succinate ER 50 MG TAKE 1 TABLET BY MOUTH DAILY; Duration: 90 days Active Trelegy Ellipta 200-62.5-25 MCG/ACT INHALE 1 PUFF BY MOUTH DAILY Inhalation Once a day; Duration: 30 days Active Fluticasone Propionate 50 MCG/ACT 2 sprays in each nostril Nasally Twice a day; Duration: 90 days 04/04/2025 Active Triamcinolone Acetonide 0.1 % 1 madonna applied topically; Duration: 30 days Not-Taking Trelegy Ellipta 100 MCG-62.5 MCG-25 MCG/INH INHALE 1 PUFF BY MOUTH EVERY DAY; Duration: 30 *Please review and pick correct strength-formula tion from [employer] options. If intended option is not shown, discontinue and re-order from Quick Search* Not-Taking Symbicort 160-4.5 MCG/ACT 2 puff(s) inhaled 2 times a day; Duration: 30 day(s) Not-Taking ALBUTEROL (EQV-PROAIR HFA) 90 mcg/inh 2 puff(s) inhaled every 6 hours; Duration: 30 days Active AEROCHAMBER MDI SPACER - MOUTHPIECE (ADULT) N/A As directed PO Per asthma action plan; Duration: 30 days Active NASAL WASHES N/A as directed intranasally as needed; Duration: 30 days Active TRIAMCINOLONE TOPICAL 0.1% 1 madonna applied topically; Duration: 30 days Active SIT (TRADITIONAL) variable per schedule SC per schedule; Duration: 1 days Active Fluticasone Propionate 50 MCG/ACT 1 spray in each nostril Nasally Twice a day; Duration: 90 days Active Montelukast Sodium 10 MG 1 tablet Orally Once a day; Duration: 90 days Active Immunizations Vaccine Route Administration Date Status Comme nts NOC PedvaxHIB IM Intramuscular 03/09/2024 Administered Allergy Immunotherapy Weekly Unknown 07/17/2019 Administered Portal Information NOC Pneumovax 23 IM Intramuscular 03/16/2024 Administered TDAP IM Intramuscular 03/16/2024 Administered Social History Tobacco Use: Social History Observation Description Date Details (start date - stop date) Never Smoker NA - NA Sex Assigned At : Social History Observation Description Sex Assigned At Female Tobacco Control (Standard) Question Answer Notes Tobacco use: Nonsmoker Problems Problem Type SNOMED Code ICD Code Onset Dates Problem Status W/U Status Risk Notes Problem Vitamin D deficiency (49632990) Vitamin D deficiency, unspecified (E55.9) Active confirmed Problem Anxiety disorder (027983156) Anxiety disorder, unspecified (F41.9) Active confirmed Problem Chronic allergic conjunctivitis (97710312) Other chronic allergic conjunctivitis (H10.45) Active confirmed Problem Allergic rhinitis caused by pollen (disorder) (77939330) Allergic rhinitis due to pollen (J30.1) Active confirmed Problem Allergic rhinitis (15439767) Other allergic rhinitis (J30.89) Active confirmed Problem Chronic sinusitis (70775158) Chronic sinusitis, unspecified (J32.9) Active confirmed Problem Uncomplicated moderate persistent asthma (365745216) Moderate persistent asthma, uncomplicated (J45.40) Active confirmed Problem Allergic rhinitis caused by animal hair and dander (398325742163971) Allergic rhinitis due to animal (cat) (dog) hair and dander (J30.81) Active confirmed Problem Dysphagia (50680277) Dysphagia, unspecified (R13.10) Active confirmed Problem Chronic sinusitis (48065774) Other chronic sinusitis (J32.8) Active confirmed Problem Allergy to penicillin (33499262) Allergy status to penicillin (Z88.0) Active confirmed Problem Ingestion dermatitis caused by food (491291054) Dermatitis due to ingested food (L27.2) Active confirmed Vital Signs Oximetry 99 % 07/17/2025 Blood pressure diastolic 84 mm Hg 07/17/2025 Height 225.2 in 07/17/2025 Blood pressure systolic 127 mm Hg 07/17/2025 Weight 244.8 lbs 02/13/2025 BMI 37.22 kg/m2 02/13/2025 Encounters Encounter Location Date Provider Diagnosis [facility] [address] [place] [phone] 10/16/2025 Presley Cuevas Allergic rhinitis du e to pollen J30.1 ; Other allergic rhinitis J30.89 ; Allergic rhinitis due to animal (cat) (dog) hair and dander J30.81 and Other chronic allergic conjunctivitis H10.[address] [address] 09/17/2025 Presley Cuevas Allergic rhinitis du e to pollen J30.1 ; Other allergic rhinitis J30.89 ; Allergic rhinitis due to animal (cat) (dog) hair and dander J30.81 and Other chronic allergic conjunctivitis H10.[address] [address] 08/14/2025 Presley Cuevas Allergic rhinitis du e to pollen J30.1 ; Other allergic rhinitis J30.89 ; Allergic rhinitis due to animal (cat) (dog) hair and dander J30.81 and Other chronic allergic conjunctivitis H10.[address] [address] 06/18/2025 Presley Cuevas Allergic rhinitis du e to pollen J30.1 ; Other allergic rhinitis J30.89 ; Allergic rhinitis due to animal (cat) (dog) hair and dander J30.81 and Other chronic allergic conjunctivitis H10.[address] [address] 05/21/2025 Presley Cuevas Allergic rhinitis du e to pollen J30.1 ; Other allergic rhinitis J30.89 ; Allergic rhinitis due to animal (cat) (dog) hair and dander J30.81 and Other chronic allergic conjunctivitis H10.[address] [address] 04/23/2025 Presley Cuevas Allergic rhinitis du e to pollen J30.1 ; Other allergic rhinitis J30.89 ; Allergic rhinitis due to animal (cat) (dog) hair and dander J30.81 and Other chronic allergic conjunctivitis H10.[address] [address] 03/26/2025 Presley Cuevas Allergic rhinitis du e to pollen J30.1 ; Other allergic rhinitis J30.89 ; Allergic rhinitis due to animal (cat) (dog) hair and dander J30.81 and Other chronic allergic conjunctivitis H10.45 [facility] [address] [place], [place] [address] [address] [address] 03/19/2025 Presley Cuevas Allergic rhinitis du e to pollen J30.1 ; Other allergic rhinitis J30.89 ; Allergic rhinitis due to animal (cat) (dog) hair and dander J30.81 and Other chronic allergic conjunctivitis H10.45 [facility] [address] [place], [place] [address] [address] [place] [phone] 03/14/2025 Presley Cuevas Allergic rhinitis du e to pollen J30.1 ; Other allergic rhinitis J30.89 ; Allergic rhinitis due to animal (cat) (dog) hair and dander J30.81 and Other chronic allergic conjunctivitis H10.45 [facility] [address] [place], [place] [address] [address] [address] 01/29/2025 Presley Cuevas Allergic rhinitis du e to pollen J30.1 ; Other allergic rhinitis J30.89 ; Allergic rhinitis due to animal (cat) (dog) hair and dander J30.81 and Other chronic allergic conjunctivitis H10.45 [facility] [address] [place], [place] [address] [address] [place] [phone] 01/01/2025 Presley Cuevas Allergic rhinitis du e to pollen J30.1 ; Other allergic rhinitis J30.89 ; Allergic rhinitis due to animal (cat) (dog) hair and dander J30.81 and Other chronic allergic conjunctivitis H10.45 [facility] [address] [place], [place] [address] [address] [place] [phone] 12/04/2024 Presley Cuevas Allergic rhinitis du e to pollen J30.1 ; Other allergic rhinitis J30.89 ; Allergic rhinitis due to animal (cat) (dog) hair and dander J30.81 and Other chronic allergic conjunctivitis H10.45 [facility] [address] [place], [place] [address] [address] [place] [phone] 11/06/2024 Presley Mason Allergic rhinitis du e to pollen J30.1 ; Other allergic rhinitis J30.89 ; Allergic rhinitis due to animal (cat) (dog) hair and dander J30.81 and Other chronic allergic conjunctivitis H10.[address] [address] 06/12/2025 Anitra Sutton [address] [address] 05/14/2025 Anitra Sutton [address] [address] 02/13/2025 Anitra Sutton Allergic rhinitis du e [...] blood-pressure reading, without diagnosis of hypertension R03.[address] [address] 07/17/2025 Anitra Sutton Allergic rhinitis du e to [...] blood-pressure reading, without diagnosis of hypertension R03.[address] [phone] 04/04/2025 Anitra Sutton Allergic rhinitis du e to pollen J30.[address] [address] 04/02/2025 Anitra Sutton Allergic rhinitis du e to pollen J30.1 [facility] [address] [place] [phone] 02/08/2025 Anitra Sutton Moderate persistent asthma, uncomplicated J45.40 [facility] [address] [place] [phone] 12/19/2024 Anitra Sutton Moderate persistent asthma, uncomplicated J45.[address] [address] 04/04/2025 Anitra Sutton Assessments Encounter Date Diagnosis (ICD Code) Assessment Notes Treatment Notes Treatment Clinical Notes Section Notes 11/06/2024 Allergic rhinitis due to pollen (ICD-10 [...] was not due for dosing today. - Olimpiajed continues to endorse daily nasal congestion. Not [...] rhinitis due to pollen (ICD-10 - J30.1) 04/23/2025 Allergic rhinitis due to pollen (ICD-10 - J30.1) 04/23/2025 Other allergic rhinitis (ICD-10 - J30.89) 05/21/2025 Allergic rhinitis due to pollen (ICD-10 - J30.1) 05/21/2025 Other allergic rhinitis (ICD-10 - J30.89) 06/18/2025 Allergic rhinitis due to pollen (ICD-10 - J30.1) 06/18/2025 Other allergic rhinitis (ICD-10 - J30.89) 07/17/2025 Allergic rhinitis due to pollen (ICD-10 - [...] topical triamcinolone for use as-needed. - Jill tolerated dosing today without issue. - Jill has continued to report congestion and drainage. She was seen by ENT, recently underwent turbinoplasty. Her ENT is considering nerve cautery to help reduce drainage. Suggested follow-up with ENT to discuss further. - She is aware to carry AIE to all SCIT visits and for two hours after. - Discussed increasing SCIT frequency in peak seasons. - Follow-up in 3 months for further evaluation and management 07/17/2025 Allergic rhinitis due to animal (cat) (dog) hair and dander (ICD-10 - J30.81) Follow allergen avoidance, meds and continue SCIT as an adjunctive treatment to current regimen 08/14/2025 Allergic rhinitis due to pollen (ICD-10 - J30.1) 08/14/2025 Other allergic rhinitis (ICD-10 - J30.89) 09/17/2025 Allergic rhinitis due to pollen (ICD-10 - J30.1) 09/17/2025 Other allergic rhinitis (ICD-10 - J30.89) 10/16/2025 Allergic rhinitis due to pollen (ICD-10 - J30.1) 10/16/2025 Other allergic rhinitis (ICD-10 - J30.89) 10/16/2025 Allergic rhinitis due to animal (cat) (dog) hair and dander (ICD-10 - J30.81) 09/17/2025 Allergic rhinitis due to animal (cat) (dog) hair and dander (ICD-10 - J30.81) 08/14/2025 Allergic rhinitis due to animal (cat) (dog) hair and dander (ICD-10 - J30.81) 07/17/2025 Other allergic rhinitis (ICD-10 - J30.89) Follow allergen avoidance, meds and continue SCIT as an adjunctive treatment to current regimen 06/18/2025 Allergic rhinitis due to animal (cat) (dog) hair and dander (ICD-10 - J30.81) 05/21/2025 Allergic rhinitis due to animal (cat) (dog) hair and dander (ICD-10 - J30.81) 04/23/2025 Allergic rhinitis due to animal (cat) (dog) hair and dander (ICD-10 - J30.81) 03/26/2025 Allergic rhinitis due to animal (cat) [...] hair and dander (ICD-10 - J30.81) 11/06/2024 Other chronic allergic conjunctivitis (ICD-10 - H10.45) 12/04/2024 Other chronic allergic conjunctivitis (ICD-10 - H10.45) 01/01/2025 Other chronic allergic conjunctivitis (ICD-10 - H10.45) 01/29/2025 Other chronic allergic conjunctivitis (ICD-10 - H10.45) 02/13/2025 Other chronic allergic conjunctivitis (ICD-10 - H10.45) Given ocular signs and symptoms I encouraged allergy avoidance measures and meds as above. If symptoms persist, consider adding additional medications including intraocular antihistamine/mas t cell stabilizer, PRN and continue SCIT as an adjunctive measure. 03/14/2025 Other chronic allergic conjunctivitis (ICD-10 - H10.45) 03/19/2025 Other chronic allergic conjunctivitis (ICD-10 - H10.45) 03/26/2025 Other chronic allergic conjunctivitis (ICD-10 - H10.45) 05/21/2025 Other chronic allergic conjunctivitis (ICD-10 - H10.45) 04/23/2025 Other chronic allergic conjunctivitis (ICD-10 - H10.45) 06/18/2025 Other chronic allergic conjunctivitis (ICD-10 - H10.45) 07/17/2025 Other chronic allergic conjunctivitis (ICD-10 - H10.45) Given ocular signs and symptoms I encouraged allergy avoidance measures and meds as above. If symptoms persist, consider adding additional medications including intraocular antihistamine/mas t cell stabilizer, PRN and continue SCIT as an adjunctive measure. 08/14/2025 Other chronic allergic conjunctivitis (ICD-10 - H10.45) 09/17/2025 Other chronic allergic conjunctivitis (ICD-10 - H10.45) 10/16/2025 Other chronic allergic conjunctivitis (ICD-10 - H10.45) 07/17/2025 Moderate persistent asthma, uncomplicated (ICD-10 - J45.40) [...] meeting ATS criteria for asthma. Spirometry repeated today that showed normal FEV1, FVC and FEV1%. 9% increase in FEV1 compared to last visit. - Continue high-dose Trelegy at this time, she is aware to rinse her mouth after use. After cold and flu season consider reducing dose. - Continue MP per AAP, which was previously formulated and discussed. - Continue SCIT. - Follow-up as above 02/13/2025 Moderate persistent asthma, uncomplicated (ICD-10 - [...] EoE vs other. Advised evaluation with GI 07/17/2025 Dysphagia, unspecified (ICD-10 - R13.10) Noted history of recurrent food sticking in regard to breads, noodles, and meats. No prior GI evaluation. Will have episodes of vomiting in relation. History is concerning for esophageal stricture vs EoE vs other. Advised evaluation with GI 07/17/2025 Dermatitis due to ingested food (ICD-10 - [...] undergoing immunotherapy to the cross-reactive pollens 02/13/2025 Dermatitis due to ingested food (ICD-10 [...] Consider CT of sinuses if symptoms persist 07/17/2025 Chronic sinusitis, unspecified (ICD-10 - J32.9) Jill [...] Consider CT of sinuses if symptoms persist 07/17/2025 Vitamin D deficiency, unspecified (ICD-10 - E55.9) Taking 2,000 IU/day 02/13/2025 Vitamin D deficiency, unspecified (ICD-10 - [...] urticaria vs other. - No recent issues 07/17/2025 Rash and other nonspecific skin eruption (ICD-10 [...] urticaria vs other. - No recent issues 07/17/2025 Allergy status to penicillin (ICD-10 - Z88.0) Reported reaction of hives occuring after ingestion of PCN as a child. No other reports symptoms and has avoided since. History otherwise vague. Advised PCN testing at next opportunity 02/13/2025 Allergy status to penicillin (ICD-10 - Z88.0) Reported reaction of hives occuring after ingestion of PCN as a child. No other reports symptoms and has avoided since. History otherwise vague. Advised PCN testing at next opportunity 02/13/2025 Elevated blood-pressure reading, without diagnosis of hypertension (ICD-10 - R03.0) BP elevated today without symptoms of urgency or emergency. Continue serial checks and follow-up with PCP 07/17/2025 Elevated blood-pressure reading, without diagnosis of hypertension (ICD-10 - R03.0) BP elevated today without symptoms of urgency or emergency. Continue serial checks and follow-up with PCP Plan Of Treatment Next Appt Details Provider Name:Anitra paul, 11/19/2025 03:00:00 PM, [facility] [address], [place], [address], Insurance Providers Payer Name Payer Address Payer Phone Subscriber Number Group Number Insured Name Patient Relationship to Insured Coverage Start Date Coverage End Date [employer] [address] [place] [address] [id number] Deep Villegas Child - Insured has Financial Responsibility Medical (General) History Medical History History ICD Code Mild persistent asthma, uncomplicated J4 5.30 Anxiety disorder, unspecified F41.9 Depression, unspecified F32.A Surgical History Surgery Date(Month/Year) Meniscus (R) surgery 09/11/2016 tonsillectomy/adenoidectomy 2004 removal compacted tooth 2013 wisdom teeth 05/05/2022 right meniscus repair 2016 tonsils 06/16/2004 wisdom teeth removal 2021 Cardiac Ablation 05/2024 Turdinate reduction
--- OUTSIDE RECORDS SUMMARY | 2025-10-22 01:19 | XMS_ITS | Patient Health Record ---
Author Organization [facility] Address [address], [place] [id number] Care Team Providers Care Machine Boss Name Role Phone MINERVA DEL CID Primary Care Provider Allergies Allergen (clinical drug ingredient) Drug/Non Drug [...] mg 1 ea by intrauterine administration once, Lot#[id number], exp. 2020 04/17/2020 Acti ve Albuterol (Eqv-Proventil [...] 0 Interpretation Negative Section Notes: student student student. Lives at home with mom and dad. student. Lives at home with mom and dad. student student v v v v student. Lives at home with mom and dad. student. Lives at home with mom and dad. student. Lives at home with mom and dad. v v student. Lives at home with mom and dad. student student student student student student student [...] at home with mom and dad. v student v v student student. Lives at home with mom and dad. student. Lives at home with mom and dad. student student. Lives at home with mom and dad. student student. Lives at home with mom and dad. student. Lives at home with mom and dad. v v v Problems Problem Type SNOMED Code ICD Code Onset Dates Problem Status W/U Status Risk Notes Problem 42642434 Anxiety (F41.9) Active confirmed Problem Overweight (028400739) Overweight child (E66.3) Active confirmed Problem Allergic rhinitis (12073764) Allergic rhinitis, unspecified (J30.9) Active confirmed Problem 093438411 Encounter for initial prescription of contraceptive pills (Z30.011) Active confirmed Problem Exacerbation of asthma (242180553) Asthma with acute exacerbation (J45.901) Active confirmed [...] for injections. called [facility] and spoke with Johana regarding this. Instructed [...]
--- NOTE | 2025-10-22 07:22 | WPDHPUPDATE1 ---
History and Physical Update Update Date/Time: 10/22/25 07:22 History and Physical has been reviewed, including an updated exam of the patient. There are NO changes in the patient's condition. Risks, benefits, and alternatives have been discussed and questions answered. Patient agrees to proceed with procedure.
--- NOTE | 2025-10-22 10:42 | ECG_ITS ---
Test Date: 2025-10-22 12:06:02 Measurements Intervals [place] Rate: 72 P: 17 NV: 129 QRS: 36 QRSD: 89 T: -2 QT: 371 QTc: 407 Interpretive Statements SINUS RHYTHM CONSIDER RIGHT VENTRICULAR CONDUCTION DELAY LOW QRS VOLTAGE IN PRECORDIAL LEADS BORDERLINE ST-T WAVE ABNORMALITY- INFERIOR LEADS BORDERLINE ECG No previous ECG available for comparison Electronically Signed On 10-22-2025 12:54:20 [employer] by Mustapha Harris D.O.
--- NOTE | 2025-10-22 12:13 | WPDANESEPPF ---
Anes - Initial Pre Proc Eval Procedure: Operation Date: 10/22/25 13:15 Proposed Procedures p Bilateral Nasal Endoscopy with Cryoablation of Posterior Nasal Nerves - Raphael Castaneda MD Date/Time: 10/22/25 12:13 Surgeon: Raphael Castaneda MD Pre Op Diagnosis: chronic rhinitis, post nasal drip Patient Data Age: 25 Gender: F Height: 1.73 m Weight: 92.3 kg Allergies Allergy/AdvReac Type Severity Reaction Status Date / Time cefdinir (From Omnicef) Allergy Severe Hives Verified 10/17/25 09:12 Penicillins Allergy Severe Hives Verified 10/17/25 09:12 Home Medications ?Medication ?Instructions ?Recorded ?Confirmed ?Type albuterol sulfate 90 mcg/actuation 2 inh inhalation Q6H PRN Dyspnea 08/11/23 10/17/25 History aerosol inhaler fluticasone fur. 100 mcg-umeclid 1 inh inhalation DAILY 08/11/23 10/17/25 History 62.5 mcg-vilant 25 mcg inhalat.powder (Trelegy Ellipta) montelukast 10 mg tablet 10 mg PO HS 06/21/24 10/17/25 History cetirizine 10 mg tablet (Zyrtec) 10 mg PO BID 03/21/25 10/17/25 History famotidine 40 mg tablet (Pepcid) 40 mg PO BID 03/21/25 10/17/25 History cholecalciferol (vitamin D3) 125 125 mcg PO DAILY 04/10/25 10/17/25 History mcg (5,000 unit) tablet (Vitamin D3) fluoxetine 20 mg capsule 40 mg PO DAILY 04/10/25 10/17/25 History lisdexamfetamine 20 mg capsule See Rx Instructions PO DAILY 04/10/25 10/17/25 History (Vyvanse) ipratropium bromide 21 mcg (0.03 2 spray intranasal .qd-tid #30 mL 07/25/25 10/17/25 Rx %) nasal spray guanfacine 2 mg tablet,extended 2 mg PO QPM 10/17/25 10/17/25 History release 24 hr tirzepatide 2.5 mg/0.5 mL 2.5 mg subcut WEEKLY 10/17/25 10/17/25 History subcutaneous pen injector (Mounjaro) Patient hx anesthesia problems: none Family hx anesthesia problems: none Results Review: All pre-operative results and documents have been reviewed as part of the pre-operative evaluation. [facility] Past Medical History Medical History POTS (postural orthostatic tachycardia syndrome) Depression Anxiety Ovarian cyst Surgical History Surgical History H/O cardiac radiofrequency ablation H/O esophagogastroduodenoscopy H/O gynecological procedure 04/2020 Kyleena insertion History of orthopedic surgery History of tonsillectomy Family History Family History Mother Endometriosis Father Diabetes mellitus Social History Social History Social History: Caffeine-daily Smoking status: Never smoker Alcohol intake: current Substance use: never Substance use type: does not use Lack of Transportation: No Lack of Food: Never True Current Housing: I Have Housing Concerned About Future Housing: No Difficulty Paying Gas/Electric Bills: No Difficulty Paying for Meds: No Currently Unemployed: No Education: High School Diploma/GED Difficulty w/ Childcare or Family Care: No Living arrangements: alone Occupation/Education: occupation Gender identity (if verbalized by the patient): Female Sexual Orientation (if Verbalized by the Patient): Straight or Heterosexual Spiritual care concerns: No Anes - Eval Final PreProcedure Day of Procedure 10/22/25 12:13 Patient weight: obese Heart: regular rate and rhythm Lungs: clear to auscultation Airway: Mallampati scale class II Neurological: alert and oriented Last oral intake: >/= 8 hours ASA classification: III Emergent: no Anesthetic plan: proceed Anesthesia type and monitoring: general ETT and standard monitoring Results Review: All pre-operative results and documents have been reviewed as part of the pre-operative evaluation. Informed Consent: The patient's anesthetic plan and its attendant risks and benefits were discussed with the patient/family/POA. Questions were solicited and answers provided to the satisfaction of the patient/family/POA.
[2025-10-22] MEDS: LACTATED RINGERS 1,000 ML 30 ML IV CONT ×2 (12:15→14:46)
[2025-10-22] MEDS: SCOPOLAMINE 1 MG PATCH 1 PATCH TRANSDERM (12:15)
[2025-10-22] MEDS: ACETAMINOPHEN 500 MG TABLET 1000 MG PO (12:15)
[2025-10-22] MEDS: CLINDAMYCIN 900 MG/D5W 50 ML 900 MG/50 ML PIGGYBACK 50 MG IVPB (13:07)
[2025-10-22 13:13] LABS: BEDSIDEPREGUCG Negative (Negative)
[2025-10-22] MEDS: fentaNYL CITRATE INJ (*CRX) 100 MCG/2 ML VIAL 25 MCG IV PUSH ×4 (13:49→14:12)
[2025-10-22] MEDS: ONDANSETRON INJ 4 MG/2 ML VIAL IV PUSH (13:59)
--- NOTE | 2025-10-22 14:22 | W.PM.PROC2 ---
Procedure Note - Detailed Date of Procedure 10/22/25 Pre-op Diagnosis chronic rhinitis, post nasal drip Post-op Diagnosis Same Procedure Performed 1. Nasal endoscopy bilateral 2. Cryoablation of the posterior nasal nerves with Clarafix Surgeon Raphael Castaneda MD Anesthesia General (lma) Indications See above Findings Incredibly boggy mucosa excess thick mucus. Description of Procedure Patient identified consent verified in the prep holding area. Patient brought operating room. Time-out performed. General anesthesia induced LMA secured. Patient prepped draped positioned Afrin-soaked pledgets placed bilaterally in the sent for 5 minutes then removed. 0 degree endoscope utilized middle turbinates medialized. Cryo flex clear affix cryoablation device placed the location of the posterior nasal nerves this was done bilaterally. And used for 30 seconds in each spot. No damage to surrounding tissue that was not intentional. One drop of blood. Clear if it is device was removed. Again this was a bilateral procedure. Care the patient back to Anesthesiology. I performed all dictated portions of the procedure. Estimated Blood Loss 0 Drains No Packing No Pathology None sent Complications No immediate complications Condition Stable Disposition PACU [facility] Billing Surgery - Charge Forward: Surgery Billing
[2025-10-22] MEDS: oxyCODONE HCL (*CRX) 5 MG TAB IR PO (15:25)
--- NOTE | 2025-10-22 16:05 | SUR.PHASEII ---
Patient and mother, Arabella, educated on scopolamine patch and removal. Both verbalized understanding.
== END 2025-10-22 16:15 | disposition home or self-care (01) ==
PROVIDERS: Anesthesiology; PCP Obstetrics & Gynecology; Visit Provider Otolaryngology
PROC: (CPT 31243; principal; 2025-10-22 13:15)
DX: J31.0 Chronic rhinitis (principal); R09.82 Postnasal drip; J34.89 Other specified disorders of nose and nasal sinuses; E66.9 Obesity, unspecified; Z68.31 Body mass index [BMI] 31.0-31.9, adult
CPT/HCPCS: 31243; 93005; A9270; C2618; J1100; J1200; J2003; J2250; J2405; J2704; J3010; J7120